=== PATIENT | male | born 1955 | race Caucasian/White ===

== ENCOUNTER 2024-10-30 11:39 | Emergency (ER) | payer MEDICARE, BC, SELFPAY ==
--- OUTSIDE RECORDS SUMMARY | 2024-10-30 11:41 | XMS_ITS | Continuity of Care Document ---
Author Organization [place] [facility] Address [address] [place] [address] Care Team Providers Care Platform Worker Name Role Phone DOMENICA SIMPSON Primary Care Provider [phone] Assessment No assessment recorded. Plan of Treatment Reminders Order Date Submit Date Provider Last Modified By Organization Details Last Modified Time Details Appointments LAB BLOOD DRAW 2024 11:10A M [facility] Not available Not available Not available ESTABLISH ED 10 2024 11:20A M Alex Flowers MD Not available Not available Not available Lab PSA, serum or plasma 2024 025 [facility], [address], [place], [address], 10/28/2024 14:29:59 PSA, total, serum or plasma - PLEASE CALL PT TO SCHEDULE Follow-up in 3 months with PSA 2024 025 [email or web address] [facility], [address] [facility], [place], [address], 10/28/2024 14:54:30 Referral None recorded. Procedures None recorded. Surgeries None recorded. Imaging None recorded. Medication Orders None recorded. Patient TargetsNo targets recorded. Patient InstructionsNo instructions recorded. Reason for Referral None Reported. Results Created Date Observation Date Name Description Value Unit Range Abnormal Flag Note LastModifiedBy Organization Detail LastModifiedTime 10/29/19 25 10/28/2024 PSA, serum or plasm a PSA 3.2ng/ mL 0-4.0 NG/mL Not Available [facility] [address], [place], [address], 10/20/2024 14:51:14 Result Notes None recorded. Problems Name Problem SNOMED Code Status Onset Date Resolution Date Notes Provider Name and Address Organization Details Recorded Time Hypertensi ve disorder 65705186 Active 2018 I10 : Essential (primary) hypertensi on Not Available [facility] 0 02:03:09 Problem Notes None recorded. Procedures Surgical History Date Name Laterality Status Provider Name and Address Organization Details Recorded Time 5 Blood Draw/SENIOR SAFETY MANAGEMENT CONSULTANT/PSA RESULTS completed Alex Flowers MD [address] [place] [address],[address], [address], [facility] 10/28/2024 14:04:49 4 Blood Draw/SENIOR SAFETY MANAGEMENT CONSULTANT/PSA RESULTS completed Alex Flowers MD [address] [place] [address],[address], [address], [facility] 05/05/2024 14:03:18 4 SENIOR SAFETY MANAGEMENT CONSULTANT/blood draw completed Alex Flowers MD [address] [place] [address],[address], [address], [facility] 10/29/2023 14:15:12 3 Blood Draw/SENIOR SAFETY MANAGEMENT CONSULTANT/PSA RESULTS completed Alex Flowers MD [address] [place] [address],[address], [address], [facility] 12/18/2022 11:13:47 2 colonoscopy completed Alex Flowers MD [address] [place] [address], [address], [facility] 05/05/2024 14:02:53 1 Fill and Pull/Voiding Trial/TOV completed Astrid Sandhu [facility] 04/13/2021 09:39:07 6 Colonoscopy completed Tamica Richards [facility] 05/11/2021 23:31:59 Imaging Results None recorded. Procedure Notes None recorded. Medical Equipment None Reported. Allergies Allergen ID Allergen Name Allergen Category Reaction Reaction Severity Criticality Documentation Date Start Date Code Code System Note Provider Name and Address Organization Details Recorded Time 893881 amlodipin e medicatio n other Not available Not available 10/28/20242015 77241 RxNorm Edema on 10mg, ok on 5mg. Not Available Not Available Not Available Medications Name Sig Start Date Stop Date Status Note LastModified by Organization Details LastModified Time losartan 50 mg tablet active Not Available Not Available No t Available etodolac 300 mg capsule TAKE FIRST CAPLET ONE HOUR PRIOR TO SURGICAL APPT. AFTER SURGERY TAKE 1 CAPLET EVERY 8 HOURS NEEDED FOR DISCOMFOR T 12/18 completed Not Available Not Available Not Available amlodipine 5 mg tablet TAKE 1 TABLET BY MOUTH EVERY DAY 05/05 completed Not Available Not Available Not Available sulfamethox azole 800 mg-trimetho prim 160 mg tablet 12/18 completed Not Available Not Available Not Available tramadol 50 mg tablet 12/18 completed Not Available Not Available Not Available potassium chloride ER 20 mEq tablet,exte nded release(par t/cryst) active Not Available Not Available Not Available cephalexin 500 mg capsule TAKE 1 CAPSULE BY MOUTH THREE TIMES DAILY 10/28 completed Not Available Not Available Not Available hydrochloro thiazide 25 mg tablet TAKE 1 TABLET BY MOUTH EVERY DAY active Not Available Not Available No t Available triamcinolo ne acetonide 0.1 % lotion 12/18 completed Not Available Not Available Not Available methylpredn isolone 4 mg tablets in a dose pack 12/18 completed Not Available Not Available Not Available sodium fluoride 1.1 % dental gel 12/18 completed Not Available Not Available Not Available potassium chloride ER 10 mEq tablet,exte nded release(par t/cryst) TAKE 1 TABLET BY MOUTH EVERY DAY WITH A MEAL 10/28 completed Not Available Not Available Not Available tadalafil 20 mg tablet Take 1 tablet every day by oral route. 2021 active Not Available Not Available Not Avai lable chlorhexidi ne gluconate 0.12 % mouthwash 12/18 completed Not Available Not Available Not Available aspirin 81 mg capsule Take 1 capsule every day by oral route. active Not Available Not Available No t Available Vitals Date Recorded Body height Body mass index (BMI) Body weight Provider Name and Address Organization Details Last Updated DateTime 10/28/2024 180.34 cm 32.1 kg/m2 419537.25 g Alex Flowers MD [address] [facility],[address], [place], [address] 10/28/2024 14:03:33 Social History Question Answer Notes LastModified by Organizat ion Details LastModified Time Tobacco Smoking Status Former Smoker Ishmael Fowler MD [address] [facility],[address], [place], [address], [facility] 03/15/2021 14:38:03 What Is Your Level Of Alcohol Consumption? Moderate Information not available 12/18/2022 How Many Times Per Week Do You Consume Alcohol? 5-7 Times Per Week Information not available 12/18/2022 What Is Your Level Of Caffeine Consumption? Moderate Information not available 12/18/2022 What Was The Date Of Your Most Recent Tobacco Screening? 10/28/2024 Information not available 10/28/2024 Do You Use Any Illicit Or Recreational Drugs? No Information not available 12/18/2022 Sex: Unknown Functional Status None recorded. Mental Status None recorded. Family History Nothing Reported. Medical History Condition Response High Blood Pressure Y Cancer Y Kidney Stones N Immunizations Vaccine Type Date Status Note Provider Nam e and Address Organization Details Recorded Time Pneumococcal conjugate PCV20, polysaccharide [id number] conjugate, adjuvant, PF 3 completed Not Available [facility] 10/28/2024 13:47:52 Influenza, adjuvanted, quadrivalent, PF 3 completed Not Available [facility] 10/28/2024 13:47:52 COVID-19, mRNA, LNP-S, PF, 50 mcg/0.5 mL 4 completed Not Available [facility] 10/28/2024 13:47:52 Influenza, adjuvanted, trivalent, PF 4 completed Not Available [facility] 10/28/2024 13:47:52 Influenza, split virus, quadrivalent, preservative 5 completed DINH JUAREZ-TRES [address] [facility],[address], [place], [address], [facility] 06/20/2023 10:19:29 Influenza, MDCK, quadrivalent, PF 0 completed [facility] [address] [place] [address],[address], [place], [address], [facility] 06/20/2023 10:19:30 Influenza, MDCK, quadrivalent, preservative 9 completed [facility] [address] [place] [address],[address], [place], [address], [facility] 06/20/2023 10:19:30 zoster recombinant 0 completed KRISTIE FERRARI [address], [place], [address], [facility] 06/20/2023 10:19:30 zoster recombinant 0 completed KRISTIE FERRARI [address], [place], [address], [facility] 06/20/2023 10:19:30 Influenza, high-dose, quadrivalent, PF 2 completed KRISTIE FERRARI [address], [place], [address], [facility] 06/20/2023 10:19:30 COVID-19, mRNA, LNP-S, PF, 100 mcg/0.5mL dose or 50 mcg/0.25mL dose 1 completed KRISTIE FERRARI [address], [place], [address], [facility] 06/20/2023 10:19:30 COVID-19, mRNA, LNP-S, PF, 100 mcg/0.5mL dose or 50 mcg/0.25mL dose 1 completed KRISTIE FERRARI [address], [place], [address], [facility] 06/20/2023 10:19:30 COVID-19, mRNA, LNP-S, PF, 30 mcg/0.3 mL dose 1 completed KRISTIE FERRARI [address], [place], [address], [facility] 06/20/2023 10:19:30 COVID-19, mRNA, LNP-S, PF, 30 mcg/0.3 mL dose, jolene-sucrose 2 completed KRISTIE GARAYBilly [facility], [address], [place], [address], [facility] 06/20/2023 10:19:30 Tdap 2 completed KRISTIE FERRARI, [address], [place], [address], [facility] 06/20/2023 10:19:30 Tdap 2 completed KRISTIE FERRARI, [address], [place], [address], [facility] 06/20/2023 10:19:30 zoster live 7 completed KRISTIE FERRARI [address], [place], [address], [facility] 06/20/2023 10:19:30 Influenza, split virus, trivalent, preservative 2 completed KRISTIE FERRARI, [address], [place], [address], [facility] 06/20/2023 10:19:30 Influenza, split virus, trivalent, preservative 3 completed KRISTIE FERRARI [address], [place], [address], [facility] 06/20/2023 10:19:30 Influenza, split virus, trivalent, preservative 1 completed KRISTIE FERRARI [address], [place], [address], [facility] 06/20/2023 10:19:30 Influenza, split virus, trivalent, preservative 0 completed KRISTIE FERRARI [address], [place], [address], [facility] 06/20/2023 10:19:30 Influenza, split virus, trivalent, PF 9 completed KRISTIE GARAYBilly [facility], [address], [place], [address], [facility] 06/20/2023 10:19:30 Td (adult), 2 Lf tetanus toxoid, preservative free, adsorbed 3 completed KRISTIE MARCUSBilly [facility]I, [address], [place], [address], [facility] 06/20/2023 10:19:30 typhoid, ViCPs 4 completed KRISTIE MARCUSBilly [facility], [address],[place] [address], [place], [address], [facility] 06/20/2023 10:19:30 Influenza, split virus, quadrivalent, PF 4 completed KRISTIESA MARCUS [facility], [address], [place], [address], [facility] 06/20/2023 10:19:30 Influenza, split virus, quadrivalent, PF 1 completed KRISTIE FERRARI, [address],[place] [address], [place], [address], [facility] 06/20/2023 10:19:30 Influenza, split virus, quadrivalent, PF 9 completed KRISTIESA MARCUS [facility], [address],[facility] [address], [place], [address], [facility] 06/20/2023 10:19:30 Influenza, split virus, quadrivalent, PF 7 completed KRISTIE FERRARI, [address],[place] [address], [place], [address], [facility] 06/20/2023 10:19:30 Hep A-Hep B 2 completed KRISTIE FERRARI, [address],[facility] [address], [place], [address], [facility] 06/20/2023 10:19:30 Hep A-Hep B 2 completed [facility] [address] [facility] [address], [place], [address], [facility] 06/20/2023 10:19:30 Hep A-Hep B 2 completed [facility] [address] [place] [address],[facility] [address], [place], [address], [facility] 06/20/2023 10:19:30 Past Encounters Encounter ID Performer Location Encounter Start Date Encounter Closed Date Diagnosis/Indication Diagnosis SNOMED-CT Code Diagnosis ICD10 Code Diagnosis Note [id number] Alex Flowers MD [facility] [address] [place] [address] 10/28/2024 13:45:15 10/28/2024 19:08:47 Carcinoma of prostate [id number] C61 1. Prostate cancer (HC)- T1c - Hegins 3+3 = 6 (left lat apex) - dx 06/18/18- s/p Cryotherap y - (04/07/21)- PSA (3.2) - increased - recent rise may be from irritation - Follow-up on 3 months with PSA(recomm end Prostate MRI and possible bx if PSA increases) Erectile dysfunction 860 624478 F52.21 H/O Erectile dysfunctio n- predates Cryoablati on / Cryoablati on made it worse- observe Health Concerns Section Related Observation LastModified by Organization Detai ls LastModified Time None Recorded Concern Status LastModified by Organization Details LastModified Time None Recorded Payers Encounter Date Sequence Insurance Name Policy Number Policy Taveras Covered Member ID Taveras Member ID Guarantor Name 10/28/2024 1 [place] MEDICARE COST [id number] [employer] [id number] [employer] Notes Date Note Type Note Provider Name and Address Organization Details Recorded Time 5 text/html 69yo male with prostate cancer (T1c - Hegins 3+3 = 6 - dx 06/18/18) - s/p Cryotherapy (04/07/21). He was noted to have an elevated PSA (4.51) in February 2018 - F/U PSA was 4.74. He underwent a TRUS bx of the prostate 06/18/18) - + prostate cancer (T1c - Hegins 3+3 = 6). No family H/O prostate cancer. He was started on Flomax 0.4 mg daily - did not take it. He tried Cialis (caused diarrhea).TRUS bx (06/18/18) - 42.4 gm- Left lateral apex - Prostate cancer - Juanjose 3+3 = 6 (60%) - no perineural invasion- Left Lateral base - CINDY- Left base - HG PIN- unable to perform Decipher test on prostate tissue.- s/p Cryotherapy (04/07/21) - Dr. Fowler 10/29/23 - He presents for follow-up on Prostate cancer. He voids every 1-3 hours during the day and 2x/night. 05/05/24-He presents for follow-up on Prostate cancer. He voids every 1-3 hours during the day and 2x/night. 10/28/24 - He presents for follow-up on Prostate cancer. He voids every 1-3 hours during the day and 2x/night.- PSA - 3.2 PSA - 1.02 (03/13/07) - 4.40 (10/17/19) - 3.2 (10/28/24)- 1.40 (10/30/08) - 5.67 (04/20/20)- 1.74 (08/12/10) - 9.39 (08/09/20)- 2.33 (08/12/14) - 9.20 (11/15/20)- 3.93 (02/02/17) - 10.01 (02/15/21)- 4.51 (02/28/18) - 2.43 (07/05/21)- 4.74 (05/20/18) - 1.56 (11/11/21)- 5.79 (10/11/18) - 1.57 (02/14/22)- 5.26 (12/20/18) - 1.2 (12/18/22)- 5.47 (03/26/19) - 3.2 (06/18/23)- 6.07 (06/26/19) - 1.8 (10/29/23)- 5.31 (07/21/19) - 0.80 (05/05/24)Prostate MRI (10/23/18) - 60 gm - no nodule- no pelvic lymphadenopathy or extra-prostatic extensionProstate MRI (09/02/20) - 51.9 gm - no suspicious lesions - no pelvic lymphadenopathyBone scan (03/01/21) - no evidence of metastatic disease Alex Flowers MD [address] [place] [address],[address], [place], [address], [facility] [place] [facility] 10/28/2024 19:08:44
--- OUTSIDE RECORDS SUMMARY | 2024-10-30 11:41 | XMS_ITS | Clinical Summary ---
Author Organization [facility] Address [address], [place] [address] Care Team Providers Care Senior Accounting Associate Name Role Phone Denzel Camargo MD Primary Care Provider Source Comments You are receiving this document as you are listed as the primary care provider,follow-up provider, or the patient has been referred to you for consultation.This is in compliance with the Medicare and[employer] EHR Incentive Program,which states Providers who transition their patient to another setting of careor provider of care or refers their patient to another provider of care shouldprovide summary care record for each transition of care or referral. [facility] Social History Tobacco Use Types Packs/Day Years Used Date Smoking Tobacco: Never Assessed Sex and Gender Information Value Date Recorded Sex Assigned at Not on file Legal Sex Male 4:44 AM CDT Gender Identity Not on file Sexual Orientation Not on file Plan of Treatment Upcoming Encounters Date Type Department Care Team (Late st Contact Info) Description 12/11/2024 11:30 AM CDT Appointment Audiology at [facility] [address] [address] Gregoria Kaur AU.D. [address] [place] [address] Health Maintenance Due Date Last Done Comments Colon Cancer Screening Plan Due 1955 Hep C Screening (Preventive Services) 1955 PSA Screening Discussion 1955 Cholesterol 1991 Medicare Annual Wellness Visit 03/15/2023 03/15/2022 COVID-19 Vaccine ( season) 2024 05/29/2024, 07/11/2021, 12/01/2020, Additional history exists RSV (1 - 1-dose 75+ series) 2031 DTaP/Tdap/Td (3 - Tdap) 05/06/2032 05/06/20, 09/27/2011, 03/26/2003 HepA Aged Out 04/05/2012, 10/12, 09/27/2011 No longer eligible based on patient's age to complete this topic Zoster/Shingles Completed 07/03/2020, 02/12, 05/17/2017 Pneumococcal 50+ Yrs Completed 03/21/2023 Influenza Completed 05/29/2024, 05/14, 05/06/2022, Additional history exists HepB Aged Out No longer eligi ble based on patient's age to complete this topic Hib Aged Out No longer eligi ble based on patient's age to complete this topic IPV (Polio) Aged Out No longer eligi ble based on patient's age to complete this topic MCV4 Aged Out No longer eligi ble based on patient's age to complete this topic Meningococcal B Aged Out No longer el igible based on patient's age to complete this topic Insurance [facility] [employer] MEDICARE MANAGED CARE [facility] Care Teams Senior Accounting Associate Relationship Specialty Start Date End Date Denzel Camargo MD [address] [place], [place] [phone] PCP - General Family Practice 03/26/24
--- OUTSIDE RECORDS SUMMARY | 2024-10-30 11:41 | XMS_ITS | Data Portability ---
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 Plan of Treatment Reminders Order Date Submit Date Provider Last Modified By Organization Details Last Modified Time Details Appointments LAB BLOOD DRAW 2024 11:10A M [facility] Not available Not available Not available ESTABL ISHED 10 2024 11:20A M Alex Flowers MD Not available Not available Not available Lab PSA, serum or plasma 2024 025 [facility], [address], [place], [address], 10/28/2024 14:29:59 PSA, total, serum or plasma - PLEASE CALL PT TO LUIS KUMAR Follow -up in 3 months with PSA 2024 025 [email or web address] [facility], [address] , [place], [address], 10/28/2024 14:54:30 PSA, serum or plasma 2023 024 [email or web address] ro [facility], [address], [place], [address], 05/05/2024 14:16:43 PSA, total, serum or plasma 2023 024 [email or web address] [facility], [address], [place], [address], 05/06/2024 08:04:56 PSA, serum or plasma 2023 024 [email or web address] [facility], [address], [place], [address], 10/29/2023 14:31:00 PSA, total, serum or plasma 2023 024 [email or web address] [facility], [address], [place], [address], 01/03/2024 12:46:04 PSA, total, serum or plasma 2023 024 [email or web address] [facility], [address] [place] [address], [place], [address], 01/03/2024 12:46:23 PSA, serum or plasma 2022 023 [email or web address] [facility], [address], [place], [address], 06/20/2023 10:39:45 PSA, total, serum or plasma 2022 023 [email or web address] [facility], [address] [place], [address], 06/20/2023 11:46:46 PSA, serum or plasma 2022 023 [facility], [address], [place], [address], 12/18/2022 11:14:06 PSA, total, serum or plasma - Needed Novemb er 2022 023 [email or web address] [facility], [address] [place], [address], 12/25/2022 08:41:05 Referral None record ed. Procedures None record ed. Surgeries None record ed. Imaging None record ed. Medication Orders None record ed. Patient TargetsNo targets recorded. Patient InstructionsNo instructions recorded. Reason for Referral None Reported. Results Created Date Observation Date Name Description Value Unit Range Abnormal Flag Note LastModifiedBy Organization Detail LastModifiedTime 12/19/1912/18/2022 PSA, serum or plasm a PSA 1.2ng/ mL 0-4.0 Not Available [facility] [address], [place], [address], 12/18/2022 11:13:51 06/20/2006/20/2023 PSA, serum or plasm a PSA 3.2ng/ ml 0-4.0 Not Available [facility] [address], [place], [address], 06/20/2023 10:33:27 10/29/19 24 10/29/2023 PSA, serum or plasm a PSA 1.8ng/ mL 0-4.0 Not Available [facility] [address], [place], [address], 10/29/2023 14:15:22 05/05/20 24 05/05/2024 PSA, serum or plasm a PSA 0.80ng /ml 0-4.0 NG/mL Not Available [facility] [address], [place], [address], 04/24/2024 16:44:58 10/29/19 25 10/28/2024 PSA, serum or plasm a PSA 3.2ng/ mL 0-4.0 NG/mL Not Available [facility] [address], [place], [address], 10/20/2024 14:51:14 Result Notes None recorded. Problems Name Problem SNOMED Code Status Onset Date Resolution Date Notes Provider Name and Address Organization Details Recorded Time Hypertensi ve disorder 58567554 Active 2018 I10 : Essential (primary) hypertensi on Not Available [facility] 0 02:03:09 Problem Notes None recorded. Procedures Surgical History Date Name Laterality Status Provider Name and Address Organization Details Recorded Time 5 Blood Draw/DIRECTOR NURSES' REGISTRY/PSA RESULTS completed Alex Flowers MD [address] [place] [address],[address], [address], [facility] 10/28/2024 14:04:49 4 Blood Draw/DIRECTOR NURSES' REGISTRY/PSA RESULTS completed Alex Flowers MD [address] [place] [address],[address], [address], [facility] 05/05/2024 14:03:18 4 DIRECTOR NURSES' REGISTRY/blood draw completed Alex Flowers MD [address] [place] [address],[address], [address], [facility] 10/29/2023 14:15:12 3 Blood Draw/DIRECTOR NURSES' REGISTRY/PSA RESULTS completed Alex Flowers MD [address] [place] [address],[address], [address], [facility] 12/18/2022 11:13:47 2 colonoscopy completed Alex Flowers MD [address] [place] [address],[facility] [address], [address], [facility] 05/05/2024 14:02:53 1 Fill and Pull/Voiding Trial/TOV completed Astrid Sandhu [facility] 04/13/2021 09:39:07 6 Colonoscopy completed Tamica Richards [facility] 05/11/2021 23:31:59 Imaging Results None recorded. Procedure Notes None recorded. Medical Equipment None Reported. Allergies Allergen ID Allergen Name Allergen Category Reaction Reaction Severity Criticality Documentation Date Start Date Code Code System Note Provider Name and Address Organization Details Recorded Time 534798 amlodipin e medicatio n other Not available Not available 10/28/20242015 17800 RxNorm Edema on 10mg, ok on 5mg. [...] EVERY 8 HOURS NEEDED FOR DISCOMFOR T 05/08 /2023 completed Not Available Not Available Not Available [...] and Address Organization Details Last Updated DateTime 12/18/2022 180.34 cm 33.5 kg/m2 839674.17 g Alex Flowers MD [address], [address], [facility] 12/18/2022 11:11:43 Date Recorded Body height Provider Name an d Address Organization Details Last Updated DateTime 06/20/2023 180.34 cm DINH JUAREZ-TRES [address], [address], [facility] 06/20/2023 10:19:22 Date Recorded Body height Body mass index (BMI) Body weight Provider Name and Address Organization Details Last Updated DateTime 10/29/2023 180.34 cm 32.1 kg/m2 458558.25 reagan Flowers MD [address] [place] [address],[place] [address], [facility] 10/29/2023 14:14:09 Date Recorded Body height Body mass index (BMI) Body weight Provider Name and Address Organization Details Last Updated DateTime 05/05/2024 180.34 cm 32.1 kg/m2 535607.25 reagan Flowers MD [address] [place] [address] [facility] 05/05/2024 14:00:41 Date Recorded Body height Body mass index (BMI) Body weight Provider Name and Address Organization Details Last Updated DateTime 10/28/2024 180.34 cm 32.1 kg/m2 514082.25 reagan Flowers MD [address] [place] [address] [facility] 10/28/2024 14:03:33 Social History Question Answer Notes LastModified by Organizat ion Details LastModified Time Tobacco Smoking Status Former Smoker Ishmael Fowler MD [address] [place] [address], [address], [facility] 03/15/2021 14:38:03 What Is Your Level Of [...] Details Recorded Time Pneumococcal conjugate PCV20, polysaccharide DNW213 conjugate, adjuvant, PF 3 completed Not Available [facility] 10/28/2024 13:47:52 Influenza, adjuvanted, quadrivalent, PF 3 completed Not Available [facility] 10/28/2024 13:47:52 COVID-19, mRNA, LNP-S, PF, 50 mcg/0.5 mL 4 completed Not Available [facility] 10/28/2024 13:47:52 Influenza, adjuvanted, trivalent, PF 4 completed Not Available [facility] 10/28/2024 13:47:52 Influenza, split virus, quadrivalent, preservative 5 completed KRISTIE FERRARI [address], [address], [facility] 06/20/2023 10:19:29 Influenza, MDCK, quadrivalent, PF 0 completed KRISTIE FERRARI [address], [address], [facility] 06/20/2023 10:19:30 Influenza, MDCK, quadrivalent, preservative 9 completed KRISTIE FERRARI [address] [place] [address], [address], [facility] 06/20/2023 10:19:30 zoster recombinant 0 completed KRISTIE FERRARI [address], [address], [facility] 06/20/2023 10:19:30 zoster recombinant 0 completed KRISTIE FERRARI [address], [address], [facility] 06/20/2023 10:19:30 Influenza, high-dose, quadrivalent, PF 2 completed KRISTIE FERRARI [address], [address], [facility] 06/20/2023 10:19:30 COVID-19, mRNA, LNP-S, PF, 100 mcg/0.5mL dose or 50 mcg/0.25mL dose 1 completed KRISTIE FERRARI [address], [place], [address], [facility] 06/20/2023 10:19:30 COVID-19, mRNA, LNP-S, PF, 100 mcg/0.5mL dose or 50 mcg/0.25mL dose 1 completed KRISTIE GARAYY VEGA [address], [place], [address], [facility] 06/20/2023 10:19:30 COVID-19, mRNA, LNP-S, PF, 30 mcg/0.3 mL dose 1 completed KRISTIE GARAYBilly FERRARI [address], [place], [address], [facility] 06/20/2023 10:19:30 COVID-19, mRNA, LNP-S, PF, 30 mcg/0.3 mL dose, jolene-sucrose 2 completed KRISTIE MARCUSBilly FERRARI [address], [place], [address], [facility] 06/20/2023 10:19:30 Tdap 2 completed KRISTIE FERRARI [address], [place], [address], [facility] 06/20/2023 10:19:30 Tdap 2 completed KRISTIE MARCUSBilly FERRARI [address], [place], [address], [facility] 06/20/2023 10:19:30 zoster live 7 completed KRISTIE FERRARI [address], [place], [address], [facility] 06/20/2023 10:19:30 Influenza, split virus, trivalent, preservative 2 completed KRISTIE FERRARI, [facility] [address] [place] [address],[address], [place], [address], [facility] 06/20/2023 10:19:30 Influenza, split virus, trivalent, preservative 3 completed KRISTIE FERRARI, [address], [place], [address], [facility] 06/20/2023 10:19:30 Influenza, split virus, trivalent, preservative 1 completed KRISTIE FERRARI, [address], [place], [address], [facility] 06/20/2023 10:19:30 Influenza, split virus, trivalent, preservative 0 completed KRISTIE FERRARI, [address], [place], [address], [facility] 06/20/2023 10:19:30 Influenza, split virus, trivalent, PF 9 completed KRISTIESA MARCUS FERRARI, [address], [place], [address], [facility] 06/20/2023 10:19:30 Td (adult), 2 Lf tetanus toxoid, preservative free, adsorbed 3 completed KRISTIE FERRARI, [address], [place], [address], [facility] 06/20/2023 10:19:30 typhoid, ViCPs 4 completed KRISTIE FERRARI, [address], [place], [address], [facility] 06/20/2023 10:19:30 Influenza, split virus, quadrivalent, PF 4 completed KRISTIE FERRARI, [address], [place], [address], [facility] 06/20/2023 10:19:30 Influenza, split virus, quadrivalent, PF 1 completed KRISTIE FERRARI, [facility] [address] [place] [address],[address] [place] [address], [address], [facility] 06/20/2023 10:19:30 Influenza, split virus, quadrivalent, PF 9 completed KRISTIE FERRARI, [address] [place] [address], [address], [facility] 06/20/2023 10:19:30 Influenza, split virus, quadrivalent, PF 7 completed KRISTIE FERRARI, [address] [place] [address], [address], [facility] 06/20/2023 10:19:30 Hep A-Hep B 2 completed KRISTIE FERRARI, [address], [address], [facility] 06/20/2023 10:19:30 Hep A-Hep B 2 completed KRISTIE FERRARI, [facility] [address] [place] [address],[address] [place] [address], [address], [facility] 06/20/2023 10:19:30 Hep A-Hep B 2 completed KRISTIE FERRARI, [facility] [address] [place] [address],[address], [address], [facility] 06/20/2023 10:19:30 Past Encounters Encounter ID Performer Location Encounter Start Date Encounter Closed Date Diagnosis/Indication Diagnosis SNOMED-CT Code Diagnosis ICD10 Code Diagnosis Note [id number] MD RAISA [facility] [address] [place] [id number] 03/15/2021 13:50:34 03/17/2021 16:31:34 Malignant tumor of prostate [id number] C61 [id number] Astrid [facility]LINE_[facility] [address] [place] [id number] 04/13/2021 09:23:23 04/20/2021 10:54:57 Carcinoma of prostate 149000836 C61 [id number] Alex Flowers MD [address] [place] [place] [address] 07/05/2022 11:38:21 07/10/2022 16:05:42 Carcinoma of prostate [id number] C61 1. Prostate cancer (HC)- T1c - Juanjose 3+3 = 6 (left lat apex) - dx 06/18/18- s/p Cryotherap y - (04/07/21)- PSA decrease (1.57)- check PSA in August 2022 ([facility])- Follow-up on 8 months with PSA ([facility]) Erectile dysfunction 860 585672 F52.21 2. Erectile dysfunctio n- predates Cyroablati on / Cryoablati on made it worse- discussed options - oral meds, MUSE, penile injection, PAULA, or penile prosthesis - try Cialsis 10-20 mg prn [id number] Alex Flowers MD [address] [place] [address] 12/18/2022 10:59:01 12/22/2022 09:39:46 Carcinoma of prostate 937100022 C61 1. Prostate cancer (HC)- T1c - Juanjose 3+3 = 6 (left lat apex) - dx 06/18/18- s/p Cryotherap y - (04/07/21)- PSA (1.2) - decrease- Follow-up on 6 months with PSA Erectile dysfunction 860 786305 F52.21 2. Erectile dysfunctio n- predates Cyroablati on / Cryoablati on made it worse- observe [id number] KRISTIE FERRARI, RECRUITMENT CONSULTANT-[facility] [address] [place] [address] 06/20/2023 10:03:39 07/02/2023 14:41:40 Carcinoma of prostate 142104585 C61 1. Prostate cancer (HC)- T1c - [place] 3+3 = 6 (left lat apex) - dx 06/18/18- s/p Cryotherap y - (04/07/21)- PSA (3.2) - increased - may be from irritation vs recurrence - Follow-up on 3 months with PSA Erectile dysfunction 860 605025 F52.21 2. Erectile dysfunctio n- predates Cryoablati on / Cryoablati on made it worse- observe [id number] Alex Flowers MD [address] [place] [place] [address] 10/29/2023 14:01:50 10/30/2023 09:34:53 Carcinoma of prostate [id number] C61 1. Prostate cancer (HC)- T1c - [place] 3+3 = 6 (left lat apex) - dx 06/18/18- s/p Cryotherap y - (04/07/21)- PSA (1.8) - decreased - recent rise may be from irritation - Follow-up on 6 months with PSA Erectile dysfunction 860 931735 F52.21 Foll2. Erectile dysfunctio n- predates Cryoablati on / Cryoablati on made it worse- observe [id number] Alex Flowers MD [address] [place] [address] 05/05/2024 13:22:52 05/06/2024 11:03:05 Carcinoma of prostate 605484248 C61 1. Prostate cancer (HC)- T1c - Juan[place] 3+3 = 6 (left lat apex) - dx 06/18/18- s/p Cryotherap y - (04/07/21)- PSA (1.8) - decreased - recent rise may be from irritation - Follow-up on 6 months with PSA Erectile dysfunction 860 467225 F52.21 Foll2. Erectile dysfunctio n- predates Cryoablati on / Cryoablati on made it worse- observe [id number] Alex Flowers MD [address] [place] [address] 10/28/2024 13:45:15 10/28/2024 19:08:47 Carcinoma of prostate 962429782 C61 1. Prostate cancer (HC)- T1c - [place] 3+3 = 6 (left lat apex) - dx 06/18/18- s/p Cryotherap y - (04/07/21)- PSA (3.2) - increased - recent rise may be from irritation - Follow-up on 3 months with PSA(recomm end Prostate MRI and possible bx if PSA increases) Erectile dysfunction 860 156873 F52.21 H/O Erectile dysfunctio n- predates Cryoablati on / Cryoablati on made it worse- observe Health Concerns Section Related Observation LastModified by Organization Detai ls LastModified Time None Recorded Concern Status LastModified by Organization Details LastModified Time None Recorded Advance Directives Directive None Recorded Payers Encounter Date Sequence Insurance Name Policy Number Policy Taveras Covered Member ID Taveras Member ID Guarantor Name 12/18/2022 1 [place] [id number] Tripkasey Cantorenigs [id number] Trip Gunnar Koenigs 06/20/2023 1 [place] [id number] Trip J Koenigs [id number] Trip J Koenigs 10/29/2023 1 [place] [id number] Trip Gunnar Koenigs [id number] Trip Gunnar Koenigs 05/05/2024 1 [place] [id number] Tripkasey Cantorenigs [id number] Trip J Koenigs 10/28/2024 1 [place] [id number] Tripkasey Cantorenigs [id number] Trip J Koenigs Notes Date Note Type Note Provider Name and Address Organization Details Recorded Time 3 text/html 67 yo male with prostate cancer (T1c - Juanjoes 3+3 = 6 - dx ) - s/p Cryotherapy (04/07/21). He was noted to have an elevated PSA (4.51) in February 2018 - F/U PSA was 4.74. He underwent a TRUS bx of the prostate 06/18/18) - + prostate cancer (T1c - Juanjose 3+3 = 6). No family H/O prostate [...] prostate tissue.- s/p Cryotherapy (04/07/21) - Dr. Chappelle109/10/20 - He presents for follow-up on prostate cancer. He reports no change in urination. He voids every 3-4 hours during the day and 1-3x/night. He denies urgency and dysuria. 07/05/22 - He presents for follow-up on prostate cancer. He notes a slow stream at night - no dysuria. He voids every 1-3 hours during the day and 1-3x/night. + difficulty obtaining and maintaining erections. 02/14/22 PSA was 1.57 12/18/22 - He presents for follow-up on Prostate cancer. He voids every 1-3 hours during the day and 2-3x/night. He reports hesitancy and slow stream at night. No erections- PSA -1.2 PSA - 1.02 (03/13/07) - 4.40 (10/17/19)- 1.40 (10/30/08) - 5.67 (04/20/20)- 1.74 (08/12/10) - 9.39 (08/09/20)- 2.33 (08/12/14) - 9.20 (11/15/20)- 3.93 (02/02/17) - 10.01 (02/15/21)- 4.51 (02/28/18) - 2.43 (07/05/21)- 4.74 (05/20/18) - 1.56 (11/11/21)- 5.79 (10/11/18) - 1.57 (02/14/22)- 5.26 (12/20/18) - 1.2 (12/18/22)- 5.47 (03/26/19)- 6.07 (06/26/19)- 5.31 (07/21/19)Prostate MRI (10/23/18) - 60 gm - no nodule- no pelvic lymphadenopathy or extra-prostatic extensionProstate MRI (09/02/20) - 51.9 gm - no suspicious lesions - no pelvic lymphadenopathyBone scan (03/01/21) - no evidence of metastatic disease Alex Flowers MD [address] [facility],[address], [place], [address], [place] [facility] 12/18/2022 11:28:56 3 text/html 67 yo male with prostate cancer (T1c - Juanjose 3+3 = 6 - dx ) - s/p Cryotherapy (04/07/21). He was noted to have an elevated PSA (4.51) in February 2018 - F/U PSA was 4.74. He underwent a TRUS bx of the prostate 06/18/18) - + prostate cancer (T1c - Juanjose 3+3 = 6). No family H/O prostate cancer. He was started on Flomax 0.4 mg daily - did not take it. He tried Cialis (caused diarrhea).TRUS bx (06/18/18) - 42.4 gm- Left lateral apex - Prostate cancer - [place] 3+3 = 6 (60%) - no perineural invasion- Left Lateral base - CINDY- Left base - HG PIN- unable to perform Decipher test on prostate tissue.- s/p Cryotherapy (04/07/21) - Dr. Chappelle109/10/20 - He presents for follow-up on prostate cancer. He reports no change in urination. He voids every 3-4 hours during the day and 1-3x/night. He denies urgency and dysuria. 07/05/22 - He presents for follow-up on prostate cancer. He notes a slow stream at night - no dysuria. He voids every 1-3 hours during the day and 1-3x/night. + difficulty obtaining and maintaining erections. 02/14/22 PSA was 1.57 12/18/22 - He presents for follow-up on Prostate cancer. He voids every 1-3 hours during the day and 2-3x/night. He reports hesitancy and slow stream at night. No erections 06/20/23 - He presents for follow-up on Prostate cancer. He voids every 1-3 hours during the day and 2-3x/night.- PSA -3.2 PSA - 1.02 (03/13/07) - 4.40 (10/17/19)- 1.40 (10/30/08) - 5.67 (04/20/20)- 1.74 (08/12/10) - 9.39 (08/09/20)- 2.33 (08/12/14) - 9.20 (11/15/20)- 3.93 (02/02/17) - 10.01 (02/15/21)- 4.51 (02/28/18) - 2.43 (07/05/21)- 4.74 (05/20/18) - 1.56 (11/11/21)- 5.79 (10/11/18) - 1.57 (02/14/22)- 5.26 (12/20/18) - 1.2 (12/18/22)- 5.47 (03/26/19) - 3.2 (06/18/23)- 6.07 (06/26/19)- 5.31 (07/21/19)Prostate MRI (10/23/18) - 60 gm - no nodule- no pelvic lymphadenopathy or extra-prostatic extensionProstate MRI (09/02/20) - 51.9 gm - no suspicious lesions - no pelvic lymphadenopathyBone scan (03/01/21) - no evidence of metastatic disease KRISTIE FERRARI, RECRUITMENT CONSULTANT- [address] [place] [address],[facility] [address], [place], [address], [place] [facility] 06/20/2023 10:41:07 4 text/html 68 yo male with prostate cancer (T1c - [place] 3+3 = 6 - dx /) - s/p Cryotherapy (04/07/21). He was noted to have an elevated PSA (4.51) in February 2018 - F/U PSA was 4.74. He underwent a TRUS bx of the prostate 06/18/18) - + prostate cancer (T1c - Juanjose 3+3 = 6). No family H/O prostate [...] tissue.- s/p Cryotherapy (04/07/21) - Dr. Fowler 12/18/22 - He presents for follow-up on Prostate cancer. He voids every 1-3 hours during the day and 2-3x/night. He reports hesitancy and slow stream at night. No erections 06/20/23 - He presents for follow-up on Prostate cancer. He voids every 1-3 hours during the day and 2-3x/night. 10/29/23 - He presents for follow-up on Prostate cancer. He voids every 1-3 hours during the day and 2x/night.- PSA - 1.8 PSA - 1.02 (03/13/07) - 4.40 (10/17/19)- 1.40 (10/30/08) - 5.67 (04/20/20)- 1.74 (08/12/10) - 9.39 (08/09/20)- 2.33 (08/12/14) - 9.20 (11/15/20)- 3.93 (02/02/17) - 10.01 (02/15/21)- 4.51 (02/28/18) - 2.43 (07/05/21)- 4.74 (05/20/18) - 1.56 (11/11/21)- 5.79 (10/11/18) - 1.57 (02/14/22)- 5.26 (12/20/18) - 1.2 (12/18/22)- 5.47 (03/26/19) - 3.2 (06/18/23)- 6.07 (06/26/19) - 1.8 (10/29/23)- 5.31 (07/21/19)Prostate MRI (10/23/18) - 60 gm - no nodule- no pelvic lymphadenopathy or extra-prostatic extensionProstate MRI (09/02/20) - 51.9 gm - no suspicious lesions - no pelvic lymphadenopathyBone scan (03/01/21) - no evidence of metastatic disease Alex Flowers MD [address] [facility],[address], [place], [address], [place] [facility] 10/29/2023 14:45:18 4 text/html 68 yo male with prostate cancer (T1c - [place] 3+3 = 6 - dx ) - s/p Cryotherapy (04/07/21). He was noted to have an elevated PSA (4.51) in February 2018 - F/U PSA was 4.74. He underwent a TRUS bx of the prostate 06/18/18) - + prostate cancer (T1c - [place] 3+3 = 6). No family H/O prostate [...] tissue.- s/p Cryotherapy (04/07/21) - Dr. Fowler 06/20/23 - He presents for follow-up on Prostate cancer. He voids every 1-3 hours during the day and 2-3x/night. 10/29/23 - He presents for follow-up on Prostate cancer. He voids every 1-3 hours during the day and 2x/night. 05/05/24-He presents for follow-up on Prostate cancer. He voids every 1-3 hours during the day and 2x/night.- PSA - 0.80ng/ml PSA - 1.02 (03/13/07) - 4.40 (10/17/19)- 1.40 (10/30/08) - 5.67 (04/20/20)- 1.74 (08/12/10) [...] evidence of metastatic disease Alex Flowers MD [address] [facility],[address], [place], [address], [place] [facility] 05/05/2024 14:27:12 5 text/html 69yo male with prostate cancer (T1c - [place] 3+3 = 6 - dx 06/18/18) - s/p Cryotherapy (04/07/21). He was noted to have an elevated PSA (4.51) in February 2018 - F/U PSA was 4.74. He underwent a TRUS bx of the prostate 06/18/18) - + prostate cancer (T1c - [place] 3+3 = 6). No family H/O prostate [...] evidence of metastatic disease Alex Flowers MD [address] [facility] Center,[address], [place], [address], [place] [facility] 10/28/2024 19:08:44
[2024-10-30 11:59] VITALS: BP 154/101; RESP 20; TEMP 36.1; O2SAT 95; BMI 33.0
--- NOTE | 2024-10-30 12:09 | ED.GENADULT ---
HPI - General Adult General Date Seen: 10/30/24 Chief complaint: Epistaxis/Nosebleed Stated complaint: 2Hr bloody nose Time Seen by Provider: 10/30/24 12:01 History of Present Illness HPI narrative: 69-year-old male is referred to the ER today from Urgent Care for evaluation of nosebleed. Nosebleed started this morning just before 9:00 a.m. while he was sleeping. He has no known nasal trauma or injury. Her he takes baby aspirin but no other anticoagulants He started having nose bleeding this morning just before 9:00 a.m. and has been persistent since then. He has been trying to lean forward and hold pressure on the front of his nose but it has not been stopping. He has had dark red venous oozing from his left nostril. Also some clots in the left side that sometimes go down the back of his throat. No right-sided bleeding. He is not lightheaded or dizzy. He went to the urgent care and was referred here to the ER. Vital signs are stable at urgent care. He also tried some pro coagulant powder and left nose that did was ineffective. Related Data Home Medications ?Medication ?Instructions ?Recorded ?Confirmed aspirin [Adult Low Dose Aspirin] PO 10/30/24 10/30/24 hydrochlorothiazide 25 mg tablet 25 mg PO DAILY 10/30/24 10/30/24 losartan 50 mg tablet 50 mg PO DAILY 10/30/24 10/30/24 potassium chloride 20 mEq 20 meq PO BID 10/30/24 10/30/24 tablet,extended release(part/cryst) Allergies Allergy/AdvReac Type Severity Reaction Status Date / Time No Known Drug Allergies Allergy Verified 10/30/24 11:17 [facility] PFS Social History Smoking Status: Former smoker Do you use any of these nicotine containing products: None Second hand tobacco smoke exposure: No How often do you have a drink containing alcohol: 4 or more times a week How many standard drinks containing alcohol do you have on a typical day: 3 or 4 How often do you have six or more drinks on one occasion: Weekly AUDIT-C Alcohol total score: 8 Non-prescribed substance use: denies use service: Yes Exam Narrative: Exam Narrative: Constitutional: Appears well-developed and well-nourished. Alert. Conversant. Non toxic. HENT: Head: Atraumatic. Nose: External Nose normal. Right nares normal. He does have active dark red oozing blood from his left naris. No posterior or pharyngeal bleeding. After direct pressure and application of Afrin bleeding from left nares is slowed. I had the patient blow his nose and expressive fairly large clot from the left nostril. With this we were able to identify a likely site of bleeding on the very lower edge of his left nasal septum about a cm or cm half in from the nasal opening. We instilled 2 mL of 1% lidocaine with epi through mucosal atomizer and then applied a cotton ball soaked in 2% viscous lidocaine. After this a be re-evaluated. We were able to identify the likely bleeding site. This was cauterized using silver nitrate. No further bleeding was noted. Patient was monitor here in the ER and then passed road test without difficulty. Mouth/Throat: Oral mucosa is clear and moist. no trismus. Pharynx normal. Tonsils symmetric. No tonsillar enlargement, erythema, or exudate. Eyes: Conjunctivae normal. EOM normal. Pupils equal, round, and reactive to light. No scleral icterus. Neck: Normal range of motion. Neck supple. No tracheal deviation present. Cardiovascular: Normal rate, regular rhythm. No gallop. No friction rub. No murmur heard. Symmetric radial artery pulses Pulmonary/Chest: Effort normal. No stridor. No respiratory distress. No wheezes. No rales. No rhonchi . No tenderness. Musculoskeletal: RUE: Normal range of motion. No tenderness. No deformity LUE: Normal range of motion. No tenderness. No deformity RLE: Normal range of motion. No edema. No tenderness. No deformity LLE: Normal range of motion. No edema. No tenderness. No deformity Lymph: No cervical adenopathy. Neurological: Alert and oriented to person, place, and time. Normal strength. CN II-VII intact. No sensory deficit. GCS eye subscore is 4. GCS verbal subscore is 5. GCS motor subscore is 6. Normal coordination . Mild tremor is his baseline. Skin: Skin is warm and dry. No rash noted. No pallor. Normal capillary refill. Psychiatric: Normal mood. Normal affect. Polite. Const: Vital Signs, click to edit/add: Vital Signs - 24 hr 10/30/24 11:59 10/30/24 13:58 Temperature 97 F L Pulse Rate [Pulse Oximeter] 82 Respiratory Rate 20 16 Blood Pressure [Ri ght Upper Arm] 154/101 H 146/81 H Pulse Oximetry 95 96 Oxygen Delivery Me thod Room Air Room Air Course Vital Signs Vital signs: Initial Vital Signs Temperature 97 F L 10/30/24 11:59 Temperature Source Temporal Artery Scan 10/30/24 11:59 Pulse Rhythm Regular 10/30/24 11:59 Respiratory Rate 20 10/30/24 11:59 Blood Pressure 154/101 H 10/30/24 11:59 Blood Pressure Mean 118 H 10/30/24 11:59 Blood Pressure Position Sitting 10/30/24 11:59 Pulse Oximetry 95 10/30/24 11:59 Oxygen Delivery Method Room Air 10/30/24 11:59 Vital Signs Temperature 97 F L 10/30/24 11:59 Respiratory Rate 20 10/30/24 11:59 Blood Pressure 154/101 H 10/30/24 11:59 Pulse Oximetry 95 10/30/24 11:59 Oxygen Delivery Method Room Air 10/30/24 11:59 Temperature 97 F L 10/30/24 11:59 Pulse Rate 82 10/30/24 13:58 Respiratory Rate 16 10/30/24 13:58 Blood Pressure 146/81 H 10/30/24 13:58 Pulse Oximetry 96 10/30/24 13:58 Oxygen Delivery Method Room Air 10/30/24 13:58 Medical Decision Making MDM Narrative Medical decision making narrative: Very pleasant 69-year-old gentleman on baby aspirin but no other anticoagulants referred from Urgent Care to the ER today for epistaxis from his left nostril. After workup here in the ER where a able to identify likely site of bleeding on the patient's left nasal septum about a cm or 2 in from the left nostril. This was cauterized. Successful hemostasis was achieved. At this point I do not think the patient needs further nasal packing or immediate ENT evaluation. He since he is hemodynamically stable and not symptom medically dizzy I do not think he needs hemoglobin monitoring or check. We discussed supportive care for nosebleeds at home. We discussed care for recurrent nose bleeds at home and precautions for return to the ER. Would recommend follow-up with ENT for re-evaluation. Patient has will call further ENT follow-up appointment. Discharge Plan Discharge Clinical Impression: Epistaxis Patient Disposition: Home, Self-Care Condition: Stable Instructions: Nosebleed (ED) Additional Instructions: As we discussed, please return to the ER right away if you have recurrent nosebleed that does not stop after 10 minutes of direct pressure. Please follow-up with ENT for a recheck within 1-2 weeks. You can to arrange your your follow-up appointment Prescriptions: No Action potassium chloride 20 mEq tablet,ER particles/crystals 20 meq PO BID hydrochlorothiazide 25 mg tablet 25 mg PO DAILY losartan 50 mg tablet 50 mg PO DAILY aspirin [Adult Low Dose Aspirin] PO Follow Up/Referrals: Denzel Camargo MD [Primary Care Provider] - Stand Alone Forms: [employer] Info Instructions
--- OUTSIDE RECORDS SUMMARY | 2024-10-30 13:57 | XMS_ITS | Clinical Summary ---
Author Organization [employer] [facility] Address [address] [place] [id number] Care Team Providers Care Mandrel Maker Name Role Phone Denzel aCmargo MD Primary Care Provider Allergies Active Allergy Reactions Criticality Noted Date Comments Amlodipine Other - Describe In Comment Field 02/03/2016 Edema on 10mg, ok on 5mg. Medications cholecalciferol (VITAMIN D) 1,000 unit tablet Take 1 tablet by mouth once daily. 0 9 Active aspirin (ECOTRIN) 81 mg enteric coated tablet Take 1 Tablet (81 mg) by mouth once daily with a meal. 0 2 Active hydroCHLOROthiaz elvie 25 mg tabletIndication s:Hypertension, unspecified type Take 1 Tablet (25 mg) by mouth once daily. 90 Tablet 3 4 Active potassium chloride (KLOR-CON M20) 20 mEq extended-release tablet (part/cryst)Ashlee cations:Hyperten haris, unspecified type Take 1 Tablet (20 mEq) by mouth two times daily with meals. 180 Tablet 3 4 Active losartan (COZAAR) 50 mg tabletIndication s:Hypertension, unspecified type Take 1 Tablet (50 mg) by mouth once daily. 90 Tablet 3 4 Active CPAPIndications: PAULA (obstructive sleep apnea) RESMED CPAP (E0601) machine for home use at pressure: 10-20 cmw, Choice of mask (A7030 or A7034) w/full face cushion (A7031) x1/mo, nasal cushion (A7032) x2/mo, or nasal pillows (A7033) x 2/mo; Length of Need: 99 months; Frequency of use: Daily 1 Each 4 Active Active Problems Problem Noted Date Diagnosed Date Bilateral lower extremity edema 03/25/2024 Paresthesia bilateral feet 03/18/2021 Stroke 201103/12/2020 Prostate cancer: Cryo treatment 04/07/20212017 Vitamin D insufficiency 12/28/2015 Impaired fasting glucose 11/18/2013 Unspecified essential hypertension 11/18/2013 PFO (patent foramen ovale) 05/13/2012 Colon polyp 03/17/2011 Overview (07/15/2021): Colonoscopy 03/2011 polyp repeat in 5 years Colonoscopy 01/2016 polyp repeat in 5 years Colonoscopy 07/2021 normal, repeat in 5 years Unspecified hearing loss Overview (03/12/2007): hearing loss in left ear. Wears a hearing aid. 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 Encounters Date Type Department Care Team Description 10/30/2024 Nurse Triage [facility] [address] [place], [place] [id number] Denzel Camargo MD Nose Problem from Last 3 Months Immunizations Immunization Administration Dates Next Due AMB Influenza, IIV4 PF (=>6 mos Flulaval,Fluzone Fluarix)(Flu Clinic Only) 05/02/2014 COVID-19 VACCINE SPIKEVAX (M ODERNA 50MCG/0.5ML) 12YO+ PFS 05/29/2024 COVID-19 vaccine (Moderna 100mcg/0.5mL) PF, MDV 12/01/2020,11/03/2020 COVID-19 vaccine ([employer]-Bio NTech 30mcg/0.3mL) 12YO+ MARIA EUGENIA-SUCROSE PF, MDV 03/15/2022 COVID-19 vaccine (Pfizer-Bio NTech 30mcg/0.3mL) PF, MDV 07/11/2021 HepA-HepB (Twinrix) 04/05/2012,11/03/2011,201110/27/2011 Influenza Virus, Unspecified 05/13/2012,05/31/20 11 Influenza, High-dose Quadriv alent Inactivated 05/06/2022 Influenza, IIV3 (Age 6-35 mos) 05/19/2009 Influenza, IIV3 (Age >=3 years) 08/24/19 19,05/28/2013,05/22/2012,05/23,06/08/2010,06/01/2009 Influenza, IIV4 05/03/2021,05/07/2019,05/21/2017 Influenza, IIV4 (=>6mos) MDV 06/10/2015 Influenza, Inactivated AIIV4 (Age 65+ Years) Preserv Free 06/07/2023 Influenza, Inactivated IIV3 (Age 65+ Years) Preserv Free 05/29/2024 Influenza, Injectable, Mdck, Quadrivalent, W/preservative 08/24/2018 Influenza,CCIIV4 PRESERV FREE 05/04/2020, 019 Pneumococcal Conj 20-valent (Prevnar 20) 03/21/2023 Td (Age >=7 Years) 03/26/2003 Tdap 05/06/2022,09/27/2011 Typhoid (injectable) 03/23/2014 Zoster (Shingrix-RZV, recombinant) 07/03/2020, Zoster (Zostavax-ZVL, live) 05/17/2017 Family History Medical History Relation Name Comments Other Father d70 - kidney fa ilure Cancer-breast Maternal Grandmother Arthritis Mother Cancer-colon Neg. Cancer-prostate No Family History Diabetes No Family History Heart Disease No Family History Stroke No Family History Relation Name Status Comments Father Maternal Grandmother Mother Neg. Social History Tobacco Use Types Packs/Day Years Used Date Smoking Tobacco: Former Cigarettes 0.5 26 0 08/13/1973 - 08/13/1999 Smokeless Tobacco: Former Tobacco Cessation:Counseling Given: No Alcohol Use Standard Drinks/Week Comments Yes 0 (1 standard drink = 0.6 oz pur e alcohol) 2 to 4 beers per day PHQ-2 Answer Date Recorded PHQ-2 TOTAL SCORE 0 03/25/2024 Social Connections Answer Date Recorded Do you often feel lonely or isolated from those around you? 0 03/25/2024 Financial Resource Strain Answer Date R ecorded Difficulty of Paying Living Expenses 3 03/25/2024 Difficulty of Paying Living Expenses Not on file 03/25/2024 Food Insecurity Answer Date Recorded Do you worry your food will run out before you are able to buy more? 1 03/25/2024 Transportation Needs Answer Date Record ed Does lack of transportation keep you from medica l appointments? 1 03/25/2024 Does lack of transportation keep you from work, meetings or getting things that you need? 1 03/25/2024 Housing Stability Answer Date Recorded What is your housing situation today? 1 03/25/2024 Utilities Answer Date Recorded Do you have trouble paying f or utilities (for example, heat, electricity, water, phone)? 1 03/25/2024 Sex and Gender Information Value Date Recorded Sex Assigned at Not on file Legal Sex Male 5:26 AM EMAIL MARKETING MANAGER Gender Identity Not on file Sexual Orientation Not on file Obstetrics History Last Filed Vital Signs Vital Sign Reading Time Taken Comments Blood Pressure 169/97 06/26/2024 9:50 AM EMAIL MARKETING MANAGER Pulse 93 06/26/2024 9:50 AM EMAIL MARKETING MANAGER Temperature 37 C (98.6 F) 04/07/2021 12:15 PM CDT Respiratory Rate 16 04/07/2021 12:15 PM CDT Oxygen Saturation 96% 06/26/2024 9:50 AM EMAIL MARKETING MANAGER Inhaled Oxygen Concentration - - Weight 109.3 kg (241 lb) 04/22/2024 9:12 AM CDT Height 176 cm (5' 9.29) 06/26/2024 9:50 AM EMAIL MARKETING MANAGER Body Mass Index 35.29 03/25/2024 3:30 PM CDT Plan of Treatment Health Maintenance Due Date Last Done Comments RSV vaccine for adults or (1 - Risk 60-74 years 1-dose series) 2016 COVID-19 vaccine series ( season) 2024 05/29/2024, 03/15/2022, 07/11/2021, Additional history exists Lipids for age 45-75 03/12/2025 03/12/2020, 03/26/2019, 11/19/2013, Additional history exists BMI (ht and wt on same day) for age 18+ 03/25/2025 03/25/2024, 03/21/2023, 03/15/2022, Additional history exists Depression screening for age 12+ 03/25/2025 03/25/2024, 03/22/2023, 03/21/2023, Additional history exists Medicare Wellness for age 65+ 03/26/2025, 03/21/2023, 03/15/2022 Colonoscopy through age 75 07/15/202607/15, 07/15/2021, 07/15/2021, Additional history exists Tetanus booster 05/06/2032 05/06/2022, 09/13, 03/26/2003 Hepatitis C screening for ag e 18-79 Completed 02/28/2018, 11/19/2013 Zoster (shingles) series for age 50+ Completed 07/03/2020, 03/12/2020, 05/17/2017 Tdap Completed 05/06/2022, 09/27/2011 Pneumococcal series for age 50+ Completed AAA screening age 65-74 Completed 03/27/2023 Influenza Vaccine Completed 05/29/2024, , 05/03/2021, Additional history exists Procedures Procedure Name Priority Date/Time Associated Diagnosis Comments US AORTA Routine 03/27/2023 9:11 AM CDT Screening for AAA (abdominal aortic aneurysm) COLONOSCOPY SCREENING Routine 07/15/2021 7:22 AM EMAIL MARKETING MANAGER History of colon polyps LIPID PANEL W REFLEX MEASURED LDL Routine 03/12/2020 10:26 AM CDT Lipid screening ANTI HCV Routine 02/28/2018 11:51 AM CDT Need for hepatitis C screening test from Last 3 Months or Most Recently Relevant to Health Maintenance Results * US AORTA (03/27/2023 9:11 AM CDT) Anatomical Region Laterality Modality Abdomen, AORTA Ultrasound 03/28/2023 7:00 AM CDT Narrative 03/28/2023 7:00 AM CDT For Patients: As a result of the Cures Act, medical imaging exams and procedure reports are released immediately into your electronic medical record. You may view this report before your referring provider. If you have questions, please contact your health care provider. Examination: US abdominal aorta Indication: Abdominal aortic aneurysm screening. Technique: Delgadillo scale and color Doppler images of the aorta and common iliac arteries are obtained. 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 Impression: No evidence of abdominal aortic aneurysm within the visualized aorta. Dictated by Karsten Figueroa MD @ Mar 28 2023 7:00AM (Electronically Signed) Procedure Note Karsten Figueroa MD - 03/28/2023 For Patients: As a result of the Cures Act, medical imagingexams and procedure reports are released immediately into your electronicmedical record. You may view this report before your referring provider.If you have questions, please contact your health care provider. Examination: US abdominal aorta Indication: Abdominal aortic aneurysm screening. Technique: Delgadillo scale and color Doppler images of the aorta and common iliac arteriesare obtained. Comparison: None Findings: Proximal aorta: 2.8 x 2.4 cm Mid aorta: Not visualized due to overlying bowel gas Distal aorta: 2.1 x 2.0 cm Right common iliac artery: 1.5 x 1.5 cm Left common iliac artery: 1.6 x 1.3 cm Anechoic cyst with increased through transmission within the livermeasuring 3.1 cm. Impression: No evidence of abdominal aortic aneurysm within the visualized aorta. Dictated by Karsten Figueroa MD @ Mar 28 2023 7:00AM (Electronically Signed) us Denzel Camargo MD US Final Result * COLONOSCOPY (07/15/2021 7:31 AM EMAIL MARKETING MANAGER) 07/15/2021 7:31 AM EMAIL MARKETING MANAGER Narrative Transcriptions Last Sadler MD - 07/15/2021 8:30 AM CST Patient Name: Trip Pires Procedure Date: 07/15/2021 Gender: Male Date of : 1955 Admit Type: Outpatient Procedure: Colonoscopy Proceduralist: Last Sadler MD , Arleth Gonzalez, RN(Nurse) Referring MD: Denzel Camargo Indications/Pre-Op Diagnosis: High risk colon cancer surveillance:Personal history of adenoma (10 mm or greater insize), Last colonoscopy: March 2016 Medications: Fentanyl 100 micrograms IV, Midazolam 4 mgIV, The level of sedation administered wasmoderate Procedure Description: The patient had risks, benefits and alternatives explained to andgave informed consent. The patient had a stable cardiopulmonary status and judged an adequate candidate for conscious sedation. The Colonoscope was passed through the anus and advanced to thececum, identified by appendiceal orifice and ileocecal valve. Thecolonoscopy was performed without difficulty. The patient tolerated the procedure well. The quality of the bowel preparation was good. The ileocecal valve, appendiceal orifice, and rectum were photographed. Complications: No immediate complications. Estimated Blood Loss & Specimen: Estimated blood loss: none. Findings: The perianal and digital rectal examinations were normal. The entire examined colon appeared normal on direct and retroflexion views. Impressions/Post-Op Diagnosis: - The entire examined colon is normal on direct and retroflexionviews. - No specimens collected. Recommendation: - Patient has a contact number available for emergencies. The signsand symptoms of potential delayed complications were discussed with the patient. Return to normal activities tomorrow. Written discharge instructions were provided to the patient. - Resume previous diet. - Continue present medications. - Repeat colonoscopy in 5 years for surveillance. Moderate Sedation: Moderate (conscious) sedation was administered by the endoscopy nurse and supervised by the endoscopist. The following parameters were monitored: oxygen saturation, heart rate, respiratory rate, blood pressure, adequacy of pulmonary ventilation and reponse to care. Please refer to the patient's medical record flowsheets and nursing notes for moderate sedation details. Total physician intraservice time was 18 minutes. Last Sadler MD 07/15/2021 8:30:06 AM This report has been signed electronically. Note Initiated On: 07/15/2021 7:31 AM Scope In: 8:08:28 AM Scope Withdrawal Time 0 hours 10 minutes 58 seconds Scope Out: 8:24:51 AM us Last Sadler MD PROCEDURE ORD Final Res ult * LIPID PANEL W REFLEX MEASURED LDL (03/12/2020 10:26 AM CDT) CHOLESTEROL,TOTAL 173 100 - 199 mg/dL 03/12/2020 4:41 PM CDT [facility] TRIGLYCERIDES 83 <150 mg/dL 03/12/2020 4:41 PM CDT [facility] HDL CHOLESTEROL 61 >40 mg/dL 0 4:41 PM CDT [facility] NON-HDL CHOLESTEROL 112 <145 mg/dl 03/12/2020 4:41 PM CDT [facility] CHOL/HDL RATIO 2.84 <4.50 03/12/2020 4:41 PM CDT [facility] LDL CHOLESTEROL 95 <=130 mg/dL 03/12/2020 4:41 PM CDT [facility] PROVIDER ORDERED STATUS RANDOM 03/12/2020 4:[address] [facility] Blood BLOOD SPECIMEN / Unknown Venipuncture / Unknown 03/12/2020 10:26 AM CDT 03/12/2020 10:26 AM CDT us Denzel Camargo MD CHEMISTRY Final Result [facility] [address] [place] [address], [place] [facility] [address] [place] [address], [place] [phone] * ANTI HCV (02/28/2018 11:51 AM CDT) HEPATITIS C ANTIBODY Non-React maribeth Non-React maribeth 02/28/2018 5:23 PM CDT [facility] Comment:Antibodies to HCV no t detected; does not exclude the possibility of exposure to HCV. Blood BLOOD SPECIMEN / Unknown Venipuncture / Unknown 02/28/2018 11:51 AM CDT 02/28/2018 11:51 AM CDT us Denzel Camargo MD SEND OUTS Final Result [facility] [address] [place] [address], [place] from Last 3 Months or Most Recently Relevant to Health Maintenance Insurance BLUE CROSS [employer] BLUE MR PB ONLY Advance Directives Documents on File Type Date Recorded Patient Auditor Tax Expl anation Healthcare Directive 05/16/2021 1:36 PM Healthcare Directive 08/25/2004 005 * Full Code (Latest Code Status on File) Date Activated Date Inactivated Comments 04/07/2021 8:04 AM 04/07/2021 3:38 PM Question Answer Comments Code Status Discussion: Not Discussed Care Teams Mandrel Maker Relationship Specialty Start Date End Date Denzel Camargo MD [address] [place] [address] PCP - General 01/28/07
--- OUTSIDE RECORDS SUMMARY | 2024-10-30 13:57 | XMS_ITS | Clinical Summary ---
Author Organization [facility] Address [address], [place] [address] Care Team Providers Care Office Services Specialist Name Role Phone Denzel Camargo MD Primary Care Provider Source Comments You are receiving this document as you are listed as the primary care provider,follow-up provider, or the patient has been referred to you for consultation.This is in compliance with the Medicare and[employer] EHR Incentive Program,which states Providers who transition their patient to another setting of careor provider of care or refers their patient to another provider of care shouldprovide summary care record for each transition of care or referral. [facility] [facility] Social History Tobacco Use Types Packs/Day Years [...] 12/11/2024 11:30 AM CDT Appointment Audiology at [facility] [address] [address] Gregoria Kaur AU.D. [address] [place] [address] Health Maintenance Due Date Last Done Comments [...] patient's age to complete this topic Insurance [facility] BLUE MEDICARE MANAGED CARE [facility] Care Teams Office Services Specialist Relationship Specialty Start Date End Date Denzel Camargo MD [address] [place], [place] [id number] PCP - General Family Practice 03/26/24
[2024-10-30 13:58] VITALS: BP 146/81; PULSE 82; RESP 16; O2SAT 96
== END 2024-10-30 14:02 | disposition home or self-care (01) ==
LOC: ED 13:55
PROVIDERS: Emergency Provider Emergency Medicine; PCP Family Medicine
DX: R04.0 Epistaxis (principal)
CPT/HCPCS: 30901; 99282; 99283

== ENCOUNTER 2024-11-17 09:01 | Outpatient (CLI) | payer MEDICARE, BC, SELFPAY ==
--- NOTE | 2024-11-17 09:15 | MR_ITS ---
EXAM: MRI of the LEFT SHOULDER, without contrast CLINICAL: Left shoulder pain. Evaluate for osteoarthritis, avascular necrosis and rotator cuff pathology. COMPARISONS: X-rays 11/10/2024. TECHNICAL: Multiplanar multisequence MRI of the left shoulder was obtained. SEDATION: None. CONTRAST: None. FINDINGS: Rotator cuff: Supraspinatus/Infraspinatus: There is mild tendinosis of the distal supraspinatus tendon. There is moderate tendinosis and superimposed partial interstitial insertional tearing of the distal infraspinatus tendon involving up to 65% of the tendon thickness on coronal series 5 images 18-21. There is mild fatty infiltration/atrophy of the supraspinatus and infraspinatus muscles. Teres minor: No tendinosis, tear or atrophy. Subscapularis: There is tendinosis with superimposed partial interstitial insertional tearing of the distal tendon on axial series 4 images 18-20. No significant fatty atrophy of the muscle. Bursae: Subacromial-subdeltoid: No significant bursal fluid. Subcoracoid: Marked bursal fluid with internal synovitis/bodies noted. Coracoacromial arch: Acromion morphology: Type I to II. No os acromiale. Acromiohumeral space: Within normal limits. Coracohumeral space: Within normal limits. Biceps tendon, long head: There is mild tendinosis of the intra-articular tendon with marked fluid about the imaged proximal extra articular tendon. No tendon rupture or displacement. Glenohumeral joint: Large glenohumeral joint effusion with synovitis/intra-articular bodies noted. Articular cartilage: There is full-thickness chondral loss throughout the glenohumeral joint. Capsule: No evidence of capsular thickening or injury. Labrum: There is attenuation and tearing throughout the entire glenoid labrum. Bones: There are advanced changes of glenohumeral osteoarthritis including degenerative peripheral marginal spurring, subchondral marrow edema and subchondral cystic changes involving the glenohumeral joint. There is advanced articular surface wear involving the glenoid with articular surface wear/remodeling also seen to involve the humeral head. Suspect sequelae of prior fracture involving the posterior glenoid. No additional evidence of fracture and there is no dislocation. No evidence of signal changes of avascular necrosis. Acromioclavicular joint: Moderate degenerative hypertrophic changes are seen to involve the AC joint. No AC joint widening. IMPRESSION: 1. Advanced glenohumeral osteoarthritis including advanced articular surface wear involving the glenoid and advanced articular surface wear/remodeling also seen to involve the humeral head. Large glenohumeral joint effusion with synovitis/intra-articular bodies and there is also marked fluid with synovitis/bodies also noted within the subcoracoid bursa. Suspect sequelae of prior fracture involving the posterior glenoid. 2. Partial interstitial insertional tearing of the distal infraspinatus tendon superimposed upon moderate tendinosis. Mild tendinosis of the distal supraspinatus tendon. There is also tendinosis and partial interstitial insertional tearing of the distal subscapularis tendon. 3. Mild tendinosis of the intra-articular long head biceps tendon with marked fluid about the imaged proximal extra-articular tendon. 4. Moderate degenerative hypertrophic change involving the AC joint. JCZ Electronically signed on 11/17/2024 2:50:00 PM by Eloy Garces D.O.
== END 2024-11-17 09:02 | disposition home or self-care (01) ==
LOC: MRI 09:02
PROVIDERS: PCP Family Medicine; Visit Provider Orthopaedic Surgery
DX: M25.512 Pain in left shoulder (principal); M19.012 Primary osteoarthritis, left shoulder; M75.102 Unspecified rotator cuff tear or rupture of left shoulder, not specified as traumatic; S46.812A Strain of other muscles, fascia and tendons at shoulder and upper arm level, left arm, initial encounter
CPT/HCPCS: 73221

== ENCOUNTER 2024-12-09 06:57 | Day surgery (SDC) | payer MEDICARE, BC, SELFPAY ==
[2024-12-09] VITALS (15 sets, daily range): BP systolic 115–151; BP diastolic 78–91; PULSE 69–75; RESP 10–20; TEMP 36–36.5; O2SAT 90–96; BMI 36.5
[2024-12-09] MEDS: SODIUM CHLORIDE 0.9 % (FLUSH) 10 ML SYRINGE IVF (08:05)
[2024-12-09] MEDS: LACTATED RINGERS 1000 ML 1,000 ML 100 ML IV ×2 (08:05→12:00)
[2024-12-09] MEDS: OXYCODONE (CR) 10 MG TAB.ER.12H PO (08:22)
[2024-12-09] MEDS: CELECOXIB 200 MG CAPSULE PO (08:23)
[2024-12-09] MEDS: ACETAMINOPHEN 500 MG TABLET 1000 MG PO ×2 (08:23→14:23)
[2024-12-09] MEDS: fentaNYL 100 MCG/2 ML inj IVP (09:02)
[2024-12-09] MEDS: MIDAZOLAM HCL 1 MG/ML inj IVP (09:02)
--- NOTE | 2024-12-09 09:07 | SUR.PREOP ---
TIME?OUT:?0900, left shoulder PT/RN/MDA?VERIFICATION?OF?SURGICAL?SITE,?PROCEDURE,?AND?CONSENT OBTAINED?PRIOR?TO?INVASIVE?PROCEDURE.
[2024-12-09] MEDS: CEFAZOLIN 1 GM inj IVP (09:45)
[2024-12-09] MEDS: TRANEXAMIC ACID 100 MG/ML INJ 1000 MG IV (09:50)
--- NOTE | 2024-12-09 12:40 | CRLHL7_ITS ---
For Patients: As a result of the Cures Act, medical imaging exams and procedure reports are released immediately into your electronic medical record. You may view this report before your referring provider. If you have questions, please contact your health care provider. Indication: Postop reverse shoulder arthroplasty. Technique: Two portable views of the left shoulder were obtained. Comparison: Left shoulder radiograph 11/10/2024 Findings: A non cemented reverse total shoulder arthroplasty has been placed. There are postoperative changes within the left shoulder soft tissues. No other retained radiopaque metallic surgical foreign body is identified. Impression: Status post left shoulder arthroplasty. Dictated by Sukhjinder Barney MD @ 12/10/2024 12:47:27 PM (Electronically Signed)
--- NOTE | 2024-12-09 12:42 | PM.ORPRC ---
Procedure Note Date of procedure: 12/09/24 Procedure: PREOPERATIVE DIAGNOSIS: Left shoulder end-stage glenohumeral joint osteoarthritis, rotator cuff tendinopathy POSTOPERATIVE DIAGNOSIS: Left shoulder end-stage glenohumeral joint osteoarthritis, rotator cuff tendinopathy NAME OF OPERATION: Left upper extremity reverse shoulder arthroplasty, biceps tenodesis SURGEON: Chad Canseco MD EQUIPMENT OR MACHINERY CLEANER: Dulce Maria Rankin PA-C, MARAH Balderrama, Anita Hsu, MS4 ANESTHESIA: General endotracheal ESTIMATED BLOOD LOSS: 650 mL COMPLICATIONS: None SPECIMENS: Sent for gross and microscopic pathology, labeled left shoulder, deep soft tissue mass DRAINS: None PREOPERATIVE ANTIBIOTICS: Ancef 2 grams IMPLANTS: 1. Tornier 25mm x 35 mm baseplate 2. 39 mm standard glenosphere 3. 7B humeral stem 4. High eccentric +12 humeral tray 5. 39 mm +6 polyethylene INDICATIONS: The patient is a 69-year-old with a longstanding history of severe, unrelenting left shoulder pain secondary to rotator cuff tear arthropathy. Despite appropriate nonoperative management, including activity modification, anti-inflammatories, [id number] pain medication, physical therapy, and injections they continue to have pain and disability. Operative intervention was offered. The risks, benefits and expected outcomes were discussed in detail. These included but were not limited to: Infection, bleeding, injury to blood vessel or nerve, venous thromboembolism. All questions were answered to their satisfaction. Use of an desk assistant was necessary throughout the case for patient positioning and safety, soft tissue retraction, and closure. PROCEDURE: General anesthesia was administered. The patient was placed in the lazy beach chair position on the operating room table. The left upper extremity was prepped and draped in the usual sterile fashion. A standard deltopectoral incision was made. Subcutaneous dissection was taken with electrocautery to the deltopectoral interval. The cephalic vein was mobilized, lateral branches were cauterized. The vein was taken medially with the pectoralis. We bluntly entered the deltopectoral interval. We freed up the deltoid. There was a deep soft tissue mass, anterior to the subscap. It appears to be comprised of fat and cyst like soft tissues. It was excised off of the subscap and anterior biceps and sent for gross and microscopic pathology labeled left shoulder deep soft tissue mass. The upper 1/3 of the insertion of the pectoralis was divided with cautery. The static retractor was placed. The clavipectoral fascia and CA ligament were divided. The circumflex vessels were controlled with electrocautery. The biceps was dissected out of the bicipital groove, was tagged with a #2 FiberWire suture and divided proximally. Two fiberWire sutures were placed in the subscapularis. The subscap was subperiosteally elevated off of the lesser tuberosity. The humeral head was delivered into the wound. The intramedullary humeral cutting guide was placed. We made the cut at the anatomic neck, in 30? of retroversion. Humeral sounds were used to assess the diameter of the canal. The broach was placed and had good rotational stability. The calcar reamer was used and the protective base plate cover was placed. Attention was then turned to the glenoid. Hohmann retractors were placed posteriorly. The labrum and biceps stump were sharply debrided. The origin of the inferior glenohumeral ligaments were subperiosteally released off of the glenoid. The drill guide was placed. The guide pin was placed in 0? of cephalic tilt. The reamer was used. The bone was markedly sclerotic. The central drill was used x2. The tap was used. The standard base plate was placed. This had excellent purchase. Locking screws x 2 were placed. The glenosphere was placed, the set screw was tightened. Attention then returned to the humerus. We placed a high eccentric standard base plate and standard poly. We reduced the shoulder and took it through a range of motion. It was thought to be stable. Trial humeral components were removed. The biceps was tenodesed in the bicipital groove with drill holes and our previously placed FiberWire suture. We placed #2 FiberWire sutures in the lesser tuberosity for subsequent subscap repair. We assembled the humeral component on the back table. We placed it in the center of our subscapularis repair sutures and tapped it down to our humeral cut. This had excellent purchase. The shoulder was reduced and was found to be unstable with poor soft tissue tension. We therefore removed tray and the polyethylene and trialed the +6 and finally the +12 tray. The +12 tray with the +6 polyethylene provided excellent stability. Therefore, we impacted the 12 mm high eccentric tray. Finally, we impacted the 39 mm +6 polyethylene. The shoulder was stable, with appropriate soft tissue tension. We did a 3 min dilute Betadine solution soak. We irrigated the wound with 3 L of normal saline via pulse lavage. We repaired the subscapularis to the lesser tuberosity with our previously placed FiberWire sutures. The deltopectoral interval was loosely reapproximated with an 0 Vicryl in an interrupted gzgenl-mj-[id number] fashion. Subcutaneous tissues were closed with the 2-0 Vicryl and a running 3-0 Monocryl suture. The skin was sealed with glue. A dry dressing and sling were applied. Sponge and needle counts were correct x2. The patient tolerated the procedure well, there were no apparent complications. They were awakened and extubated in the operating room, taken to the postanesthesia care unit in satisfactory condition. PLAN: The patient will be mobilized with physical therapy. The sling will be used for 6 weeks postoperatively. Active range of motion in forward flexion and abduction as tolerates. No external rotation greater than 0? for 6 weeks postoperatively. They will be discharged to home once medically appropriate.
--- NOTE | 2024-12-09 13:30 | P.ANES_ITS ---
Anesthesia Charges Start Date/Time Anesthesia Start Date: 12/09/24 Anesthesia Start Time: 09:34 Stop Date/Time Anesthesia Stop Date: 12/09/24 Anesthesia Stop Time: 13:28 Coding CPT Codes CPT Codes: ANESTH SHOULDER REPLACEMENT - 54088 ([id number]) P3 - PATIENT W/SEVERE SYS DISEASE, QK - ELEVATOR REPAIRER 2-4 CNCRNT ANES PROC, QX - SENIOR NAVAL PARACHUTIST SVC W/ MD MED DIRECTION
--- NOTE | 2024-12-09 13:30 | W.ANESCHARGE ---
Anesthesia Charges Start Date/Time Anesthesia Start Date: 12/09/24 Anesthesia Start Time: 09:34 Stop Date/Time Anesthesia Stop Date: 12/09/24 Anesthesia Stop Time: 13:28 Coding CPT Codes CPT Codes: ANESTH SHOULDER REPLACEMENT - 19691 ([id number]) P3 - PATIENT W/SEVERE SYS DISEASE, QK - POST TRONIC MACHINE OPERATOR 2-4 CNCRNT ANES PROC, QX - CABLE MOCK UP ASSEMBLER SVC W/ MD MED DIRECTION
--- NOTE | 2024-12-09 14:23 | P.ANES_ITS ---
Anesthesia Charges Start Date/Time Anesthesia Start Date: 12/09/24 Anesthesia Start Time: 09:34 Stop Date/Time Anesthesia Stop Date: 12/09/24 Anesthesia Stop Time: 13:28 Coding CPT Codes CPT Codes: ANESTH SHOULDER REPLACEMENT - 70295 ([id number]) QK - LAMPS TESTER AND INSPECTOR 2-4 CNCRNT ANES PROC, QX - MAINTENANCE INSPECTOR SVC W/ MD MED DIRECTION, P3 - PATIENT W/SEVERE SYS DISEASE
--- NOTE | 2024-12-09 14:23 | W.ANESCHARGE ---
Anesthesia Charges Start Date/Time Anesthesia Start Date: 12/09/24 Anesthesia Start Time: 09:34 Stop Date/Time Anesthesia Stop Date: 12/09/24 Anesthesia Stop Time: 13:28 Coding CPT Codes CPT Codes: ANESTH SHOULDER REPLACEMENT - 08446 ([id number]) QK - PUTTY MAKER 2-4 CNCRNT ANES PROC, QX - DIRECTOR INDEX SVC W/ MD MED DIRECTION, P3 - PATIENT W/SEVERE SYS DISEASE
--- NOTE | 2024-12-09 14:24 | W.PM.NB ---
Nerve Block Nerve Block Time Seen by Provider: 09:04 Date Seen: 12/09/24 Type of block requested by surgeon for post-operative analgesia: supraclavicular Side: left Time out performed: Yes Verification of patient name: Yes Verification of date of : Yes Site marking: site marked Name of person performing procedure: Ike Continuous monitoring Was continuous monitoring of O2 sat, B/P, cardiac technician, recorded every 15 minutes?: Yes Procedure Checklist: sterile prep, needles and gloves Ultrasound guided. Images saved: Yes Medications given in 5ml increments after negative aspiration: Ropivicaine %: 0.5 mL: 20 Needle gauge: 22 Precedex (mcg): 25 Patient tolerated procedure well: Yes Block Charges Block Charge (with Pro Fee): Brachial Plexus Use of Ultrasound Machine for Block: Yes- US Guidance/pain block
--- NOTE | 2024-12-09 16:02 | SUR.PHASEII ---
Pt met with OT, Sapna, and sofia. Will review D/c instructions and pt will D/c to home with his .
== END 2024-12-09 16:19 | disposition home or self-care (01) ==
LOC: OR 06:57
PROVIDERS: PCP Family Medicine; Visit Provider Orthopaedic Surgery
PROC: 0RRJ0JZ Replacement of Right Shoulder Joint with Synthetic Substitute, Open Approach (ICD-10-PCS; CPT 23472; principal; 2024-12-09 08:45)
DX: M19.012 Primary osteoarthritis, left shoulder (principal); M75.102 Unspecified rotator cuff tear or rupture of left shoulder, not specified as traumatic; G89.18 Other acute postprocedural pain; I10 Essential (primary) hypertension; Z86.73 Personal history of transient ischemic attack (TIA), and cerebral infarction without residual deficits; Z87.891 Personal history of nicotine dependence; G47.33 Obstructive sleep apnea (adult) (pediatric); Z79.82 Long term (current) use of aspirin; R73.03 Prediabetes
CPT/HCPCS: 23472; 23430; 01638; 64415; 73030; 76942; 88307; 97110; 97165; A9270; C1713; C1776; J0330; J0690; J1100; J1171; J2250; J2405; J2704; J2795; J3010; J3490; J7120

== ENCOUNTER 2025-02-19 11:15 | Outpatient (RCR) | payer MEDICARE, BC, SELFPAY ==
--- NOTE | 2024-12-26 10:48 | PT.OPEX ---
PT [facility] Out[facility] Eval PT [facility] Outpatient Eval Start: 12/26/24 07:53 Freq: Status: Active Protocol: Document 12/26/24 07:54 LISA (Rec: 12/26/24 10:48 LISA [id number]) E-signed By Nikki Gabriel PT Physical Therapy Outpatient Evaluation Insurance Information Recert Due Date 03/25/25 Insurance Name Medicare B Medical Diagnosis S/P rTSA , BICEPS TENODESIS R SHOULDER OA, PARTIAL SUPRASPINATUS TEARING, MOD AC ARTHROSIS Treating Diagnosis L SHOULDER PAIN L SHOULDER STIFFNESS L SHOULDER WEAKNESS Imaging Report Information 11/17/44 MRI: 1. Advanced glenohumeral osteoarthritis including advanced articular surface wear involving the glenoid and advanced articular surface wear/remodeling also seen to involve the humeral head. Large glenohumeral joint effusion with synovitis/intra- articular bodies and there is also marked fluid with synovitis/bodies also noted within the subcoracoid bursa. Suspect sequelae of prior fracture involving the posterior glenoid. 2. Partial interstitial insertional tearing of the distal infraspinatus tendon superimposed upon moderate tendinosis. Mild tendinosis of the distal supraspinatus tendon. There is also tendinosis and partial interstitial insertional tearing of the distal subscapularis tendon. 3. Mild tendinosis of the intra-articular long head biceps tendon with marked fluid about the imaged proximal extra-articular tendon. 4. Moderate degenerative hypertrophic change involving the AC joint. Referring MD WATSON Subjective Preferred Name DEANDRE Subjective DEANDRE ARRIVES WITH HIS WEARING HIS SLING AND REPORTING VIRTUALLY NO PAIN. HE HAS BEEN PERFORMING HIS INSTRUCTED EXERCISES PROVIDED PREOPERATIVELY AND USING ICE INTERMITTENTLY WITH REGULAR DOSING OF TYLENOL. HE NO LONGER NEEDS ANY NARCOTICS FOR SYMPTOMS MGMT. HE IS SLEEPING IN HIS RECLINER AND ASKS WHEN HE CAN RETURN TO BED WELL WHEN CAN HE RETURN TO DRIVING. BOTH ARE ADDRESSED DURING THE EVALUATION/PATIENT EDUCATION. 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 HE HAS NOT SIGNIFICANT TRAUMA TO THE SHOULDER BUT RATHER PROGRESS PAIN AND DYSFUNCTION. 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 Active range of motion in forward flexion and abduction as tolerates. No external rotation greater than 0? for 6 weeks postoperatively. PMHX: H/O L MAGDALENO 2006, R KNEE ACL 92, HTN, [place] W/HEARING AIDS Weight Bearing Status Non-Weight Bearing Therapy Limitations/Systems Review Hearing Objective Other/Pertinent Objective 12/26/24: MODERATE EDEMA ABOUT THE SHOULDER AND ECCHYMOSIS TO THE UE AND CHEST WALL. SUPINE ROM 90/90/0 (RESTRICTED PER [facility] PROTOCOL)/ 24 @ 45SCAPTION; INCISION PRISTINE AND ABSENT OF S/S OF INFECTION . Functional Test Performed & Score [id number] Assessment Assessment/Impression PATIENT IS A 69 YO REFERRED BY [facility] TO EVAL AND TREAT S/P L rTSA, BICEPS TENODESIS . PATIENT DEMONSTRATES SIGNS AND SYMPTOMS CONSISTENT WITH S/P L rTSA, BICEPS TENODESIS 12/09/24 CONTRIBUTING TO THEIR FUNCTIONAL IMPAIRMENTS OF LIMITED USE OF LUE, ADL'S, IADL'S, NON-WB. PATIENT REPORTS GREAT SYMPTOM MGMT UTILIZING BY REST, ICE, GENTLY MVMT. PATIENT HAS NOTABLE OBJECTIVE FINDING INCLUDING PROM 90/90/0/24 @45 DEGREES SCAPTION, MODERATE HYPOMOBILITY OF THE GHJ, ACJ, AND SCJ, MODERATE EDEMA AND BRUISING WHICH ALL ARE CONTRIBUTING TO THE CLINICAL IMPRESSION. PATIENT IS A GOOD CANDIDATE FOR SKILLED PHYSICAL THERAPY TO ADDRESS AFOREMENTIONED DEFICITS ABOVE IN ORDER TO RETURN TO ASYMPTOMATIC STATUS AND RETURN TO UNRESTRICTED MVMTS. INTERVENTION IS NECESSARY BY WAY OF THERAPEUTIC EXERCISE, MANUAL THERAPY, MODALITIES FOR SYMPTOM MGMT, STABILIZATION/ PROPRIOCEPTION, NEUROMUSCULAR RE-EDUCATION, PATIENT EDUCATION PLEASE REFER TO APPROPRIATE SECTION WITHIN THIS EVALUATION FOR COMPLETE LIST OF GOALS AND PLAN OF CARE . DISCHARGE PLAN AND CRITERIA IS FOR PATIENT TO ACHIEVE THE GOALS LISTED BELOW OR UNTIL MAX POTENTIAL MET. PATIENT VERBALIZED UNDERSTANDING AND AGREEABLE TO POC, FREQ, AND GOALS ESTABLISHED. Primary Functional Limitations USE OF LUE, ADL'S, REACHING, LIFTING, CARRYING Plan of Care Rehabilitation Potential Good Physical Therapy Goals STG IN 4-6 WEEKS: 1. PATIENT WILL DEMONSTRATE GOOD MGMT OF HIS PAIN AND EDEMA WITH REPORTED PAIN </3/10 DURING HIS HOME PROGRAM AND WITH THE PROGRESSION OF HIS PHYSICAL THERAPY. 2. PATIENT WILL RETURN TO INDEPENDENCE WITH ADL'S, RETURN TO DRIVING, AND MAINTAIN HIS PRECAUTIONS/ RESTRICTIONS 3. PATIENT WILL DEMONSTRATE PROM TO WFL TO PREPARE FOR RETURN TO FUNCTIONAL USE OF LEFT UE; LTG WITHIN 8-12 WEEKS: 1. PATIENT WILL DEMONSTRATE AROM OF LEFT SHOULDER TO WFL TO RETURN TO FULL FUNCTIONAL FOR ADL'S, IADL'S AND PEER CENTERED ACTIVITIES. 2. PATIENT WILL DEMONSTRATE FUNCTIONAL STRENGTH TO RETURN TO REACHING OVERHEAD, ANTERIORLY AND OUT TO SIDE NEEDED DURING PATIENT CENTERED ACTIVITIES. 3. PATIENT WILL DEMONSTRATE INDEPENDENCE WITH HIS INDIVIDUALIZED AND COMPREHENSIVE HEP TO PROGRESS TWD THE ABVE MENTIONED GOALS, CONTINUED MGMT OF SYMPTOMS, AND ONGOING IMPROVEMENT WITH ROM, STRENGTH AND FUNCTION FOR A FULL RETURN TO ALL ACTIVITIES Coordination/Communication With Referral Source Treatment Plan/Direct Interventions Ice/Cold/Vasopneumatic,Joint Mobilization,Manual Therapy, Neuromuscular Re-ed,Orthotics/ Braces,Self-Care/Home Management,Therapeutic Activities,Therapeutic Exercises Frequency/Duration 1-2X/WK Patient Will Be Discharged From Therapy Completion of LTG(s), Independently Progressing Evaluation Billing Untimed Code Treatment Minutes 15 PT Eval No Charge No Complexity Low Certification Information Initial Certification Date 12/26/24 Ending Certification Date 03/25/25 Provider Signature Required Yes Provider Signature Shows Agreement With POC & Medical Necessity Physician NPI Number Write NPI# Here Physician Comment/Change : Physician Signature & Date Requested Please Sign/Date Here
== END 2025-05-11 15:41 | disposition home or self-care (01) ==
PROVIDERS: PCP Family Medicine; Visit Provider Orthopaedic Surgery
DX: Z48.89 Encounter for other specified surgical aftercare (principal); Z96.612 Presence of left artificial shoulder joint; M25.512 Pain in left shoulder; Z51.89 Encounter for other specified aftercare
CPT/HCPCS: 97110; 97140; 97161

== ENCOUNTER 2025-03-05 05:57 | Day surgery (SDC) | payer MEDICARE, BC, SELFPAY ==
[2025-03-05 06:06] VITALS: BP 137/87; PULSE 78; RESP 16; TEMP 36.9; O2SAT 95; BMI 36.4
[2025-03-05] MEDS: LACTATED RINGERS 1000 ML 1,000 ML 100 ML IV (06:30)
[2025-03-05] MEDS: SODIUM CHLORIDE 0.9 % (FLUSH) 10 ML SYRINGE IVF (06:30)
[2025-03-05] MEDS: BUPIVACAINE 0.5% 30 ML 10 ML INJECTION (07:20)
[2025-03-05] MEDS: lidocaine HCL 2 % MULTIDOSE 20 ML VIAL 10 ML INJECTION (07:22)
[2025-03-05 08:12] VITALS: BP 115/86; PULSE 78; RESP 14; TEMP 36.3; O2SAT 97
--- NOTE | 2025-03-05 08:15 | P.ANES_ITS ---
Anesthesia Charges Start Date/Time Anesthesia Start Date: 03/05/25 Anesthesia Start Time: 07:12 Stop Date/Time Anesthesia Stop Date: 03/05/25 Anesthesia Stop Time: 08:16 Coding CPT Codes CPT Codes: ANESTH ELBOW AREA SURGERY - 71142 ([id number]) P3 - PATIENT W/SEVERE SYS DISEASE, QK - TRUMPET TEACHER 2-4 CNCRNT ANES PROC, QX - ROLLWAY MAN SVC W/ MD MED DIRECTION
--- NOTE | 2025-03-05 08:15 | W.ANESCHARGE ---
Anesthesia Charges Start Date/Time Anesthesia Start Date: 03/05/25 Anesthesia Start Time: 07:12 Stop Date/Time Anesthesia Stop Date: 03/05/25 Anesthesia Stop Time: 08:16 Coding CPT Codes CPT Codes: ANESTH ELBOW AREA SURGERY - 96519 ([id number]) P3 - PATIENT W/SEVERE SYS DISEASE, QK - COMMERCIAL LITIGATION ATTORNEY 2-4 CNCRNT ANES PROC, QX - WATER SUPPLY TECHNICIAN SVC W/ MD MED DIRECTION
[2025-03-05 08:30] VITALS: BP 139/90; PULSE 70; RESP 16; O2SAT 94
[2025-03-05 08:45] VITALS: BP 148/80; PULSE 68; RESP 16; O2SAT 95
[2025-03-05] MEDS: ACETAMINOPHEN 500 MG TABLET 1000 MG PO (08:45)
--- NOTE | 2025-03-05 08:47 | P.ANES_ITS ---
Anesthesia Charges Start Date/Time Anesthesia Start Date: 03/05/25 Anesthesia Start Time: 07:12 Stop Date/Time Anesthesia Stop Date: 03/05/25 Anesthesia Stop Time: 08:16 Coding CPT Codes CPT Codes: ANESTH ELBOW AREA SURGERY - 01453 ([id number]) QK - DOUGH PUNCHER 2-4 CNCRNT ANES PROC, QX - TRAY SERVER SVC W/ MD MED DIRECTION, P3 - PATIENT W/SEVERE SYS DISEASE
--- NOTE | 2025-03-05 08:47 | W.ANESCHARGE ---
Anesthesia Charges Start Date/Time Anesthesia Start Date: 03/05/25 Anesthesia Start Time: 07:12 Stop Date/Time Anesthesia Stop Date: 03/05/25 Anesthesia Stop Time: 08:16 Coding CPT Codes CPT Codes: ANESTH ELBOW AREA SURGERY - 05115 ([id number]) QK - PRODUCTION UTILITY WORKER 2-4 CNCRNT ANES PROC, QX - ALTERATION INSPECTOR SVC W/ MD MED DIRECTION, P3 - PATIENT W/SEVERE SYS DISEASE
--- NOTE | 2025-03-09 08:25 | P.ORPRC_ITS ---
Procedure Note Date of procedure: 03/05/25 Procedure: Preop diagnosis: Left upper extremity cubital tunnel syndrome Postop diagnosis: Left upper extremity cubital tunnel syndrome Procedure: Left upper extremity cubital tunnel release Anesthesia: Local plus monitored anesthesia care Surgeon: Chad Canseco MD computer assistant: Dulce Maria Rankin PA-C EBL: 0 mL Complications: None Specimens: None Drains: None Preoperative antibiotics: Ancef 2 g Indications: The patient has a history of left upper extremity cubital tunnel syndrome symptoms. EMG/nerve conduction study confirms the diagnosis. Despite appropriate nonoperative management they continue to have symptoms. Operative intervention was recommended. The risks, benefits alternatives and expected outcomes were discussed in detail. These included but were not limited to: Infection, bleeding, injury to blood vessel or nerve, venous thromboembolism. All questions were answered to their satisfaction. The patient was placed supine on the operating room table. IV sedation was administered. The upper extremity was prepped and draped in usual sterile fashion. Soft tissues were infiltrated with 0.5% Marcaine without epinephrine, 1% lidocaine without epinephrine. The limb was exsanguinated with the Last bandage, the pneumatic tourniquet was inflated to 250 mm of mercury. A longitudinal incision was made centered over the ulnar nerve at the cubital tunnel. Subcutaneous dissection was taken with the scalpe, Metzenbaum and tenotomy scissors to the ulnar nerve. Dissection was carried distally to the fascia over the flexor carpi ulnaris which was divided longitudinally. We visualized the motor branch to the FCU. Dissection was carried proximally into the triceps muscle belly. This results in a wide decompression of the ulnar nerve. Flexion and extension of the elbow shows the nerve is stable. The wound was irrigated with normal saline. It was closed with a 2-0 Vicryl and a 3-0 Monocryl in a subcuticular fashion. Glue was used to seal the skin. A soft dressing was applied. The tourniquet was released. The patient tolerated the procedure well, there were no apparent complications. They were sent to same day surgery in satisfactory condition. Plan: Use of the upper extremity as tolerates. Discontinue the intraoperative dressing on postoperative day 3 and may get the wound wet as tolerates. Follow up in the office in 2 weeks for a wound check.
== END 2025-03-05 09:07 | disposition home or self-care (01) ==
LOC: OR 06:00
PROVIDERS: PCP Family Medicine; Visit Provider Orthopaedic Surgery
PROC: (CPT 64721; principal; 2025-03-05 07:15)
DX: G56.22 Lesion of ulnar nerve, left upper limb (principal)
CPT/HCPCS: 64718; 01710; A9270; J0665; J0690; J1100; J2250; J2405; J2704; J3010; J7120

== ENCOUNTER 2025-07-06 13:52 | Inpatient (IN) | payer MEDICARE, BC, SELFPAY ==
[2025-07-06] VITALS (22 sets, daily range): BP systolic 120–154; BP diastolic 74–103; PULSE 63–103; RESP 14–20; TEMP 36.4–36.7; O2SAT 90–97; BMI 34.4
[2025-07-06] MEDS: LACTATED RINGERS 1000 ML 1,000 ML 100 ML IV ×2 (07:05→09:24)
[2025-07-06] MEDS: ACETAMINOPHEN 500 MG TABLET 1000 MG PO ×3 (07:13→20:38)
[2025-07-06] MEDS: OXYCODONE (CR) 10 MG TAB.ER.12H PO (07:13)
--- NOTE | 2025-07-06 07:22 | W.PM.H&PU ---
History & Physical Update History & Physical Update H&P Reviewed and patient assessed: No changes noted
[2025-07-06] MEDS: SODIUM CHLORIDE 0.9 % (FLUSH) 10 ML SYRINGE IVF (07:42)
[2025-07-06] MEDS: MIDAZOLAM HCL 1 MG/ML inj IVP (08:30)
--- NOTE | 2025-07-06 08:42 | SUR.PREOP ---
TIME?OUT:?0830 PT/zunilda beyer RN/sharlene garay CRNA/amry cabral MDA?VERIFICATION?OF?SURGICAL?SITE,?PROCEDURE,?AND?CONSENT OBTAINED?PRIOR?TO?INVASIVE?PROCEDURE.
[2025-07-06] MEDS: TRANEXAMIC ACID 100 MG/ML INJ 1000 MG IV (09:14)
[2025-07-06] MEDS: VANCOMYCIN 100 MG/ML INJ 1000 MG TOPICAL (10:45)
[2025-07-06] MEDS: TOBRAMYCIN SULFATE 1.2 GM TOPICAL (10:45)
--- NOTE | 2025-07-06 11:36 | CRLHL7_ITS ---
For Patients: As a result of the Cures Act, medical imaging exams and procedure reports are released immediately into your electronic medical record. You may view this report before your referring provider. If you have questions, please contact your health care provider. INDICATION: Postop left shoulder TECHNIQUE: 2 portable images of left shoulder COMPARISON: 06/10/2025 FINDINGS: Immediate postop change of TSA removal and replacement with temporary prosthesis. Temporary prosthesis in good alignment. IMPRESSION: Immediate postop change of TSA removal and replacement with temporary prosthesis. No obvious complication. Dictated by Raul Ballard MD @ 07/07/2025 5:29:27 AM (Electronically Signed)
--- NOTE | 2025-07-06 11:41 | P.ORPRC_ITS ---
Procedure Note Date of procedure: 07/06/25 Procedure: PREOPERATIVE DIAGNOSIS: 1. 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 Left reverse shoulder arthroplasty explantation of all implants 2. Left shoulder extensive glenohumeral debridement including excisional debridement of some bone including the glenoid and the humerus. 3. Left shoulder implantation of antibiotic cement spacer (humeral sided only) SURGEON: Lowell Vines MD. PEDIATRIC RADIOLOGIST: Alex SIMON - Of note, a skilled assistant teaching professor was critical for this case to aid in patient positioning, tissue retraction, limb manipulation/positioning, retraction for glenoid exposure, which was challenging, awareness and protection of critical structures, and closure. ANESTHESIA: General plus supraclavicular block Implants: Antibiotic cement hemiarthroplasty spacer formed by hand SPECIMEN: 5 different cultures were obtained. These were as follows: A) tissue on the backside of the glenoid base plate B) tissue deep to the base plate C) inferior capsular tissue D) swab within the humeral canal E) tissue from the humeral canal adjacent to the humeral component Tornier Ascend flex Reverse Shoulder System implants were removed. Antibiotic cement was mixed on the back table and fashioned to be a hemiarthroplasty. After this had cured, it was inserted into the humeral canal to allow some tension to be restored and antibiotic elution. COMPLICATIONS: None evident INDICATIONS: The patient is a pleasant 69-year-old male who underwent the index left reverse shoulder arthroplasty procedure 12/09/2024 (by Dr. Chad Canseco). He initially did fine postoperatively. However, follow-up radiographs on 06/10/2025 showed that the stem had subsided into the humerus and the Flores taper of the humeral component had disengaged which popped off the humeral tray. It was recommended that a revision arthroplasty be considered. Unfortunately, Dr. Canseco himself has been out on medical leave and thus Trip presented to me ready for a revision left shoulder reverse arthroplasty surgery. FINDINGS: Typical scar tissue made the identification of the deltopectoral interval slightly more difficult. We were able to identify the cephalic vein further distally and tracked it somewhat proximally. There may have been some cauterization of the vessel during the index procedure as was not as clearly identified in the midportion of the wound. Upon entering the joint capsule, there was an abundant egress of synovial-type fluid. Larose colored, nonmalodorous, relatively thin/non viscous fluid. No paramjit purulence encountered. The humeral tray was indeed found to be disengage from the humeral stem component. After removing the humeral tray, we had better access to the glenosphere/glenoid component. The glenosphere was found to be loose/disengage from the base plate. This was removed readily. The base plate was also found to be grossly loose from the glenoid. Despite the central 9.5 mm screw and 2 peripheral locking screws, the entire construct quite simply could rotate in the glenoid in a 15-30 degree arc but also simply pulled out from the glenoid. DESCRIPTION OF PROCEDURE: Following a thorough discussion of risks, benefits, and alternatives, consent was obtained and the left shoulder was marked. The patient was brought to the operating room and placed supine on the operating table. Induction of anesthesia was undertaken. 2 g IV Ancef and 1 g tranexamic acid was administered within 1 hr of incision preoperatively. Appropriate time- out was performed identifying proper patient, site, and procedure. The operative extremity was prepped and draped in the appropriate sterile fashion using ChloraPrep after the patient was positioned in the [facility] beach chair position with head in neutral alignment and all bony prominences well padded. The previous longitudinal deltopectoral incision was sharply incised with a scalpel. Blunt dissection through the suspected deltopectoral interval helped us identify the cephalic vein further distally. We tracked this more proximally. Around the midportion of the wound, it was not as clearly identified which may have been related to previous cauterization or ligation. However, we were able to identify the deltopectoral interval. The deltoid was significant and he has to the deeper tissues. We mobilized the deltoid. The conjoined tendon was also identified and mobilized on both the superficial and deep surfaces. The subscapularis/capsule was identified and some suture tape sutures were identified presumably to reapproximate thus subscapularis to the humerus. This was divided with a cuff of tissue for tenotomy allowing us access to the joint itself. The rotator interval was reopened with combination of Bovie cautery and Metzenbaum scissors. The humeral tray was encountered, disengage from the humeral stem component, and the tray was removed. This improved visualization of the glenoid. The humerus was mobilized better by releasing some of the capsule along the inferior portion of the humerus. Caution was taken around the more inferior and deeper surface for axillary nerve presents. We did not encounter any significant twitches while using a Bovie cautery. After mobilizing humerus better, we accessed the glenoid. The glenosphere was found to be loose/unstable relative to the base plate. The screw was loosened in the central part and the glenosphere readily disengage/came off. In fact, is not really engaged. Base plate also was found to be grossly loose being able to both rotated as well as piston in an out. We were able to remove the entire base plate with the central 9.5 mm screw and the 2 peripheral locking screws all in 1 construct. It simply pulled out. We were able to take cultures from the backside of the base plate, the glenoid tissue, as well as inferior capsular tissue at this juncture. These were 3 of our 5 cultures. We then curetted the glenoid holes and thoroughly irrigated with normal saline. Attention was turned back to the humerus. The humeral stem was found to be well fixed, but likely because it had migrated further distal within the humeral diaphysis. We were able to apply broach handle and removed this. 2 more cultures were obtained including that swab of the humeral canal and tissue from adjacent to the humerus. A 3 minute Betadine soak was then performed. Thorough irrigation normal saline was completed. Cement was mixed on the back table with antibiotic mixture including 1 g powder vancomycin and 1.2 g powdered tobramycin. After allowing this to mix and began to cure, the cement was fashioned like a hemiarthroplasty. It was placed into the humeral canal after the cement had hardened so that it did not bind strongly to the humerus. It rested within the humeral canal and allowed reapproximation but some tension within the shoulder region. Closure was performed with # 1 PDS of the subscapularis tenotomy. Also reapproximation of the deltopectoral interval minimally. Thereafter, dressings were applied and patient was woken from anesthesia and transferred to recovery room stable condition. A skilled assistant teaching professor was critical for this case to aid in patient positioning, tissue retraction, limb manipulation/positioning, retraction for glenoid exposure, which was challenging, awareness and protection of critical structures, and closure. PLAN: 1. Sling at all times for the operative upper extremity. 2. AROM of elbow, forearm, wrist, and digits as tolerated. 3. OT consults for education and assistance. 4. family services coordinator consult for discharge planning. 5. Empiric iv antibiotics - anticipate need for PICC line placement for presumed deep infection 6. Maintain cultures x 4 weeks for presumed C. Acnes septic arthritis. 7. Early ambulation, and SCDs for DVT prophylaxis. 8. Admit to the hospital for the above 9. Analgesics p.r.n.
--- NOTE | 2025-07-06 11:52 | W.PM.NB ---
Nerve Block Nerve Block Time Seen by Provider: 08:30 Date Seen: 07/06/25 Type of block requested by surgeon for post-operative analgesia: supraclavicular Side: left Time out performed: Yes Verification of patient name: Yes Verification of date of : Yes Site marking: site marked Name of person performing procedure: Ike Continuous monitoring Was continuous monitoring of O2 sat, B/P, alarm security or surveillance monitor, recorded every 15 minutes?: Yes Procedure Checklist: sterile prep, needles and gloves Ultrasound guided. Images saved: Yes Medications given in 5ml increments after negative aspiration: Ropivicaine %: 0.5 mL: 20 Needle gauge: 22 Precedex (mcg): 25 Patient tolerated procedure well: Yes Block Charges Block Charge (with Pro Fee): Brachial Plexus Use of Ultrasound Machine for Block: Yes- US Guidance/pain block
--- NOTE | 2025-07-06 11:53 | P.ANES_ITS ---
Anesthesia Charges Start Date/Time Anesthesia Start Date: 07/06/25 Anesthesia Start Time: 08:40 Stop Date/Time Anesthesia Stop Date: 07/06/25 Anesthesia Stop Time: 11:57 Coding CPT Codes CPT Codes: ANESTH SHOULDER REPLACEMENT - 43611 ([id number]) P3 - PATIENT W/SEVERE SYS DISEASE, QK - SLUDGE CONTROL ATTENDANT 2-4 CNCRNT ANES PROC, QX - UNDERWATER PHOTOGRAPHER SVC W/ MD MED DIRECTION
--- NOTE | 2025-07-06 11:53 | W.ANESCHARGE ---
Anesthesia Charges Start Date/Time Anesthesia Start Date: 07/06/25 Anesthesia Start Time: 08:40 Stop Date/Time Anesthesia Stop Date: 07/06/25 Anesthesia Stop Time: 11:57 Coding CPT Codes CPT Codes: ANESTH SHOULDER REPLACEMENT - 68652 ([id number]) P3 - PATIENT W/SEVERE SYS DISEASE, QK - SPOOLER RUBBER STRAND 2-4 CNCRNT ANES PROC, QX - SPEECH LANGUAGE SPECIALIST SVC W/ MD MED DIRECTION
--- NOTE | 2025-07-06 12:03 | P.ANES_ITS ---
Anesthesia Charges Start Date/Time Anesthesia Start Date: 07/06/25 Anesthesia Start Time: 08:40 Stop Date/Time Anesthesia Stop Date: 07/06/25 Anesthesia Stop Time: 11:57 Coding CPT Codes CPT Codes: ANESTH SHOULDER REPLACEMENT - 70354 ([id number]) P3 - PATIENT W/SEVERE SYS DISEASE, QX - PATTERN SCRATCHER LEONARDC W/ MED DIRECTION, QK - CATERPILLAR OPERATOR 2-4 CNCRNT ANES PROC
--- NOTE | 2025-07-06 12:03 | W.ANESCHARGE ---
Anesthesia Charges Start Date/Time Anesthesia Start Date: 07/06/25 Anesthesia Start Time: 08:40 Stop Date/Time Anesthesia Stop Date: 07/06/25 Anesthesia Stop Time: 11:57 Coding CPT Codes CPT Codes: ANESTH SHOULDER REPLACEMENT - 13912 ([id number]) P3 - PATIENT W/SEVERE SYS DISEASE, QX - CARDIOVASCULAR SURGICAL TECH LEONARDC W/ MED DIRECTION, QK - CLIENT RELATIONSHIP EXECUTIVE 2-4 CNCRNT ANES PROC
[2025-07-06] MEDS: VANCOMYCIN 2 GM/400 ML 2 GM/400 ML PIGGYBACK IVPB (16:00)
--- NOTE | 2025-07-06 18:12 | PM.IMCN1 ---
Date of Consult Patient: Maddison Patient Consult date: 07/06/25 Requesting Physician: Orthopedics Primary Care Provider: Denzel Camargo MD Consult Narrative Narrative: Trip Pires is a 69 year old male admitted to the hospital with a failed left shoulder reverse shoulder arthroplasty. Initial procedure was done 12/09/2024. He has subsequently developed complications including disarticulation of the humeral component. He underwent surgery today with Dr. Vines where it was felt that the prosthetic joint was infected. It was removed and an antibiotic cement spacer was placed. Cultures obtained. Postoperatively he reports generally doing well. Not currently having significant pain. Preop evaluation did not show any significant concerns about operative complications or postoperative care. He has not had symptomatic infection with fever or chills. He does have a chronic painful swollen left shoulder. He has had no recent illness. Intraoperatively he was found to have apparent infection leading to the plan of antibiotic cement spacer and probable prolonged outpatient antibiotic therapy. 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 - Infection and inflammatory reaction due to other internal joint prosthesis, initial encounter (ICD-10) ?Z96.619 - Presence of unspecified artificial shoulder joint (ICD-10) Obesity ?E66.9 - Obesity, unspecified (ICD-10) Paresthesia of both feet ?R20.2 - Paresthesia of skin (ICD-10) PFO (patent foramen ovale) ?Q21.12 - Patent foramen ovale (ICD-10) PAULA (obstructive sleep apnea) ?G47.33 - Obstructive sleep apnea (adult) (pediatric) (ICD-10) Prostate cancer ?C61 - Malignant neoplasm of prostate (ICD-10) Unspecified hearing loss ?H91.90 - Unspecified hearing loss, unspecified ear (ICD-10) High blood pressure ?I10 - Essential (primary) hypertension (ICD-10) Ulnar neuropathy of left upper extremity ?G56.22 - Lesion of ulnar nerve, left upper limb (ICD-10) Dyskinesis of left scapula ?M25.312 - Other instability, left shoulder (ICD-10) Stroke (~2011) ?I63.9 - Cerebral infarction, unspecified (ICD-10) Surgical History History of reverse total replacement of left shoulder joint (07/06/25) ?Z96.612 - Presence of left artificial shoulder joint (ICD-10) S/P cubital tunnel release (03/09/25) ?Z98.890 - Other specified postprocedural states (ICD-10) Status post reverse arthroplasty of left shoulder (12/09/24) ?Z96.612 - Presence of left artificial shoulder joint (ICD-10) S/P ORIF (open reduction internal fixation) fracture (06/22/93) ?Z98.890 - Other specified postprocedural states (ICD-10) ?Z87.81 - Personal history of (healed) traumatic fracture (ICD-10) History of total right hip arthroplasty (08/22/05) ?Z96.641 - Presence of right artificial hip joint (ICD-10) History of arthroscopy of right knee (06/29/92) ?Z98.890 - Other specified postprocedural states (ICD-10) Social History (Updated 07/06/25 @ 18:21 by Raul Saleh MD) Narrative: -Rosemary, lives with his in [place]. Smoking Status: Former smoker Do you use any of these nicotine containing products: None Second hand tobacco smoke exposure: No How often do you have a drink containing alcohol: 4 or more times a week Alcohol type: beer, wine and hard liquor How many standard drinks containing alcohol do you have on a typical day: 3 or 4 How often do you have six or more drinks on one occasion: Never AUDIT-C Alcohol total score: 5 Non-prescribed substance use: denies use Caffeine: Yes service: Yes Meds Home Medications and Allergies Home Medications ?Medication ?Instructions ?Recorded ?Confirmed ?Type hydrochlorothiazide 25 mg tablet 25 mg PO DAILY 10/30/24 07/06/25 History losartan 50 mg tablet 50 mg PO DAILY 10/30/24 07/06/25 History potassium chloride 20 mEq 20 meq PO BID 10/30/24 07/06/25 History tablet,extended release(part/cryst) aspirin [Adult Low Dose Aspirin] 81 mg PO QDAY 06/10/25 07/06/25 History oxycodone 5 mg tablet 5 mg PO Q4-8H PRN pain #30 tabs 07/06/25 Rx sennosides 8.6 mg-docusate sodium 1 tab-cap PO BID PRN constipation 07/06/25 Rx 50 mg tablet (Senna-S) #15 tabs Allergies Allergy/AdvReac Type Severity Reaction Status Date / Time amlodipine AdvReac Mild Verified 07/06/25 07:30 Exam Narrative: Exam Narrative: He is alert and appears in no distress. He gives his own history. Oropharynx with small airway. Neck is supple without mass or adenopathy. Respirations are clear to auscultation. Cardiovascular: S1, S2, regular rate and rhythm. No murmur gallop or rub. Abdomen is protuberant. Nontender. Unable to identify masses. Left shoulder is inspected it has marked swelling of the soft tissue around the shoulder compared to the right. Bandage over the anterior shoulder from surgery without significant drainage or erythema. Left upper extremity has altered sensation but return of sensation to the fingers moves his fingers on his left hand fairly well. Good radial pulse. Right upper extremity and lower extremities with normal strength motion and sensation. No edema Const: Vital Signs, click to edit/add: Vital Signs - 24 hr 07/06/25 07:35 07/06/25 08:30 07/06/25 08:35 Temperature 97.8 F Pulse Rate 84 71 75 Pulse Rate [Pulse Oximeter] Respiratory Rate 20 20 20 Blood Pressure 151/92 H 154/95 H 148/92 H Blood Pressure [Ri ght Arm] Pulse Oximetry 95 97 95 Oxygen Delivery Me thod Room Air Nasal Cannula Nasal Cannula Oxygen Flow Rate 3 3 07/06/25 11:55 07/06/25 12:00 07/06/25 12:05 Temperature 97.7 F Pulse Rate 70 64 63 Pulse Rate [Pulse Oximeter] Respiratory Rate 18 16 16 Blood Pressure 138/86 120/84 133/86 Blood Pressure [Ri ght Arm] Pulse Oximetry 94 92 92 Oxygen Delivery Me thod Room Air Nasal Cannula Nasal Cannula Oxygen Flow Rate 3 3 07/06/25 12:10 07/06/25 12:15 07/06/25 12:20 Temperature 97.7 F Pulse Rate 65 63 64 Pulse Rate [Pulse Oximeter] Respiratory Rate 16 16 16 Blood Pressure 131/86 122/83 132/90 H Blood Pressure [Ri ght Arm] Pulse Oximetry 93 93 94 Oxygen Delivery Me thod Nasal Cannula Nasal Cannula Nasal Cannula Oxygen Flow Rate 3 3 3 07/06/25 12:30 07/06/25 12:45 07/06/25 13:00 Temperature 97.5 F L 97.7 F 97.5 F L Pulse Rate Pulse Rate [Pulse Oximeter] 64 63 66 Respiratory Rate 14 16 16 Blood Pressure Blood Pressure [Ri ght Arm] 131/87 127/91 H 128/84 Pulse Oximetry 90 93 94 Oxygen Delivery Me thod Nasal Cannula Nasal Cannula Nasal Cannula Oxygen Flow Rate 3 3 07/06/25 13:15 07/06/25 13:30 07/06/25 14:00 Temperature Pulse Rate Pulse Rate [Pulse Oximeter] 69 76 72 Respiratory Rate 16 16 16 Blood Pressure Blood Pressure [Ri ght Arm] 130/84 136/95 H 132/87 Pulse Oximetry 95 95 Oxygen Delivery Me thod Nasal Cannula Room Air Nasal Cannula Oxygen Flow Rate 3 3 1 07/06/25 14:30 07/06/25 15:00 07/06/25 15:32 Temperature Pulse Rate Pulse Rate [Pulse Oximeter] 70 76 Respiratory Rate 16 18 Blood Pressure Blood Pressure [Ri ght Arm] 126/86 130/99 H Pulse Oximetry 92 92 Oxygen Delivery Me thod Room Air Room Air Oxygen Flow Rate 07/06/25 16:37 07/06/25 17:37 Temperature 97.9 F 97.5 F L Pulse Rate Pulse Rate [Pulse Oximeter] 82 84 Respiratory Rate 18 16 Blood Pressure Blood Pressure [Ri ght Arm] 144/94 H 143/103 H Pulse Oximetry 93 92 Oxygen Delivery Me thod Room Air Room Air Oxygen Flow Rate Documenting provider has reviewed patient's vital signs: yes Assessment and Plan Assessment and plan (1) Failed total joint replacement: Problem comment: Originally placed 12/09/2024. Removed due to apparent infection 07/06/2025 Status: Acute (2) Prosthetic shoulder infection: Problem comment: Suspected 07/06/2025 with removal of prosthetic shoulder and implant of antibiotic cement spacer by Dr. Vines. Initiate treatment with ceftriaxone and vancomycin pending cultures and Infectious Disease consult Status: Acute (3) Status post reverse arthroplasty of left shoulder: Problem comment: Left upper extremity reverse shoulder arthroplasty, biceps tenodesis (12/09/2024, Dr. Canseco) Status: Acute (4) High blood pressure: Problem comment: Resume home meds Status: Acute (5) PAULA (obstructive sleep apnea): Problem comment: Home CPAP Status: Acute Plan 69-year-old male with probable left shoulder prosthetic joint infection. Admitted for removal of prosthesis and placement of antibiotic cement spacer. Await cultures, initiate empiric antibiotic with vancomycin and ceftriaxone. Infectious disease consult and hold cultures for 2 weeks for possibility of C acnes infection Total Time Spent Total Time Spent: Total time spent today is 60 minutes in reviewing outside records, coordination of care and discussing with patient, and other providers ongoing management of infected shoulder joints
--- NOTE | 2025-07-06 18:53 | PC.NURSE ---
Pt came to unit at 1230. Pleasant to care for. VSS. Denies pain. A&Ox4. Ambulating well with stand by assist. Pt is tolerating oral intake. He is unable to void at this time, bladder scanned at 217ml, pt denies discomfort. Surgical dressing is clean, dry and intact and remains in sling.
[2025-07-06] MEDS: cefTRIAXone 2 GM in 0.9 % SODIUM CHLORIDE Mini-bag 100 ML IVPB (19:35)
[2025-07-06] MEDS: POTASSIUM CHLORIDE 10 MEQ CAPSULE ER 20 MEQ PO (20:39)
[2025-07-06] MEDS: SENNOSIDES 1 TAB TABLET 2 TAB PO (20:39)
--- NOTE | 2025-07-07 | CRLHL7_ITS ---
For Patients: As a result of the Century Cures Act, medical imaging exams and procedure reports are released immediately into your electronic medical record. You may view this report before your referring provider. If you have questions, please contact your health care provider. INDICATION: : PICC line placement COMPARISON: Left shoulder radiograph on July 06, 2025 TECHNIQUE: One view(s) of the chest FINDINGS: Right upper extremity PICC with tip overlying the expected position of the cavoatrial junction, approximately 4.5 centimeters below the alix. The cardiomediastinal silhouette and pulmonary vasculature are unremarkable. There is no focal airspace consolidation, pleural effusion, or pneumothorax. No displaced fractures. Left shoulder temporary prosthesis. IMPRESSION: Right upper extremity PICC with tip overlying the expected position of the cavoatrial junction. Dictated by Eloy Nuno MD @ 07/07/2025 9:43:26 AM (Electronically Signed)
[2025-07-07 03:00] VITALS: BP 160/89; PULSE 83; RESP 20; O2SAT 96
[2025-07-07] MEDS: ACETAMINOPHEN 500 MG TABLET 1000 MG PO ×4 (03:21→21:04)
--- NOTE | 2025-07-07 05:30 | PC.NURSE ---
[id number] Pt slept well during night, using home cpap. no pain to Left shouldner/arm. Ice applied to site, scheduled tylenol only pain med administered. initially had trouble voiding, bladder scanned for 948cc, pt stated that this was normal and declined being straight cathed, urinary retention has resolved and pt voiding without difficulty. denies cheat pain, N/V. dressing C/D/I. up ad/lu, tolerating activity.
[2025-07-07] MEDS: VANCOMYCIN 2 GM/400 ML 2 GM/400 ML PIGGYBACK IVPB ×2 (05:57→17:41)
[2025-07-07 06:20] LABS: Hematocrit* 36.4 % (37.0-53.0); Hemoglobin* 12.4 gm/dL (13.5-17.5); Immature Granulocytes Pct Auto 0.2 %; Lymphocytes Absolute Auto 0.90 K/uL (0.90-2.90); Mean Corpuscular HGB Conc 34 gm/dL (32-36); Mean Corpuscular Hemoglobin 33 pg (26-34); Mean Corpuscular Volume 98 fL (80-100); RDW Coefficient of Variation % 11.7 % (11.5-15.5); Red Blood Count* 3.72 m/uL (4.30-5.90); White Blood Count* 13.45 K/uL (4.50-11.00)
[2025-07-07 06:22] LABS: Immature Granulocytes Abs Auto 0.00 K/uL (0.00-0.30); Slide Review Reflex No
[2025-07-07 06:34] LABS: Albumin* 3.8 g/dL (3.3-5.0); Chloride* 91 mmol/L (96-114); Potassium* 4.4 mmol/L (3.6-5.1); Sodium* 127 mmol/L (135-149)
[2025-07-07 06:37] LABS: Alanine Aminotransferase* 25 U/L (4-50); Alkaline Phosphatase* 68 U/L (40-150); Anion Gap 11 mEq/L (7-15); Aspartate Amino Transferase* 28 U/L (12-35); Bilirubin Total* 0.4 mg/dL (0.1-1.5); Blood Urea Nitrogen* 19 mg/dL (7-30); Carbon Dioxide* 25 mmol/L (20-32); Creatinine* 1.0 mg/dL (0.5-1.5); Est. Creatinine Clearance* 73.00; Estimated Glomerular Filt Rate 82 ml/min; Total Protein* 7.0 g/dL (6.0-8.3)
[2025-07-07 06:38] LABS: Calcium* 8.9 mg/dL (8.4-10.6); Glucose* 142 mg/dL (60-115)
[2025-07-07 07:00] VITALS: BP 152/91; PULSE 84; RESP 18; TEMP 36.6; O2SAT 95
[2025-07-07] MEDS: LOSARTAN POTASSIUM 50 MG TABLET PO (09:41)
[2025-07-07] MEDS: SENNOSIDES 1 TAB TABLET 2 TAB PO ×2 (09:41→21:04)
[2025-07-07] MEDS: ASPIRIN 81 MG TAB.CHEW PO (09:41)
[2025-07-07] MEDS: POTASSIUM CHLORIDE 10 MEQ CAPSULE ER 20 MEQ PO ×2 (09:42→21:04)
--- NOTE | 2025-07-07 10:44 | PM.ORPN ---
Subjective Subjective Date Seen: 07/07/25 Principal diagnosis: POD1 rt reverse TSA implant explantation, humeral cement spacer implant Interval history: Patient reports doing well. No acute events over night. Pain managed with scheduled and PRN medications, ice. DVT prophylaxis: SCDs, walking. Denies fevers, chills, aches, N/V, CP, SOB/SHRESTHA, or lightheadedness. Receiving PICC line today. Echo 07/08/25. Ortho Exam Narrative Exam Narrative: -Patient appears comfortable in recliner; no apparent acute distress -Alert and oriented times 3 -Operative shoulder swollen; soft, supple tissues; no obvious erythema. No ecchymosis. Warmth appropriate -Surgical dressing clean, dry, intact; no obvious drainage, no erythematous streaking peripheral to the bandage -Bilateral calves soft and supple; no significant swelling, edema, tenderness, erythema, discoloration, warmth, or palpable cords -2+ radial pulse, intact dermatomes and myotomes distally (5/5 strength) Const Vital Signs, click to edit/add: Vital Signs - 24 hr 07/06/25 11:55 07/06/25 12:00 07/06/25 12:05 Temperature 97.7 F Pulse Rate 70 64 63 Pulse Rate [Pulse Oximeter] Respiratory Rate 18 16 16 Blood Pressure 138/86 120/84 133/86 Blood Pressure [Right Arm] Pulse Oximetry 94 92 92 Oxygen Delivery Method Room Air Nasal Cannula Nasal Cannula Oxygen Flow Rate 3 3 07/06/25 12:10 07/06/25 12:15 07/06/25 12:20 Temperature 97.7 F Pulse Rate 65 63 64 Pulse Rate [Pulse Oximeter] Respiratory Rate 16 16 16 Blood Pressure 131/86 122/83 132/90 H Blood Pressure [Right Arm] Pulse Oximetry 93 93 94 Oxygen Delivery Method Nasal Cannula Nasal Cannula Nasal Cannula Oxygen Flow Rate 3 3 3 07/06/25 12:30 07/06/25 12:45 07/06/25 13:00 Temperature 97.5 F L 97.7 F 97.5 F L Pulse Rate Pulse Rate [Pulse Oximeter] 64 63 66 Respiratory Rate 14 16 16 Blood Pressure Blood Pressure [Right Arm] 131/87 127/91 H 128/84 Pulse Oximetry 90 93 94 Oxygen Delivery Method Nasal Cannula Nasal Cannula Nasal Cannula Oxygen Flow Rate 3 3 07/06/25 13:15 07/06/25 13:30 07/06/25 14:00 Temperature Pulse Rate Pulse Rate [Pulse Oximeter] 69 76 72 Respiratory Rate 16 16 16 Blood Pressure Blood Pressure [Right Arm] 130/84 136/95 H 132/87 Pulse Oximetry 95 95 Oxygen Delivery Method Nasal Cannula Room Air Nasal Cannula Oxygen Flow Rate 3 3 1 07/06/25 14:30 07/06/25 15:00 07/06/25 15:32 Temperature Pulse Rate Pulse Rate [Pulse Oximeter] 70 76 Respiratory Rate 16 18 Blood Pressure Blood Pressure [Right Arm] 126/86 130/99 H Pulse Oximetry 92 92 Oxygen Delivery Method Room Air Room Air Oxygen Flow Rate 07/06/25 16:37 07/06/25 17:37 07/06/25 19:37 Temperature 97.9 F 97.5 F L 97.8 F Pulse Rate Pulse Rate [Pulse Oximeter] 82 84 103 H Respiratory Rate 18 16 20 Blood Pressure Blood Pressure [Right Arm] 144/94 H 143/103 H 122/74 Pulse Oximetry 93 92 91 Oxygen Delivery Method Room Air Room Air Room Air Oxygen Flow Rate 07/06/25 23:00 07/06/25 23:00 07/07/25 03:00 Temperature 98.0 F Pulse Rate Pulse Rate [Pulse Oximeter] 86 83 Respiratory Rate 20 20 20 Blood Pressure Blood Pressure [Right Arm] 132/94 H 160/89 H Pulse Oximetry 92 92 96 Oxygen Delivery Method Room Air Room Air Room Air Oxygen Flow Rate 07/07/25 07:00 07/07/25 07:00 Temperature 97.8 F Pulse Rate Pulse Rate [Pulse Oximeter] 84 Respiratory Rate 18 Blood Pressure Blood Pressure [Right Arm] 152/91 H Pulse Oximetry 95 95 Oxygen Delivery Method Room Air Room Air Oxygen Flow Rate Assessment and Plan Assessment and plan (1) Failed total joint replacement: Problem details: Originally placed 12/09/2024. Removed due to apparent infection 07/06/2025 Status: Acute (2) Prosthetic shoulder infection: Problem details: Suspected 07/06/2025 with removal of prosthetic shoulder and implant of antibiotic cement spacer by Dr. Vines. Initiate treatment with ceftriaxone and vancomycin pending cultures and Infectious Disease consult pending - Dr. Romina Eisenberg will see patient tomorrow via video for formal consult. She recommended MRSA swab (ordered) and continuing ceftriaxone and vancomycin for now. Vancomycin can be discontinued if MRSA swab results are negative. Status: Acute (3) Status post reverse arthroplasty of left shoulder: Problem details: Left upper extremity reverse shoulder arthroplasty, biceps tenodesis (12/09/2024, Dr. Canseco) Status: Acute (4) High blood pressure: Problem details: Continue home meds Status: Chronic (5) PAULA (obstructive sleep apnea): Problem details: Home CPAP Status: Chronic Plan - continue vancomycin ceftriaxone via PICC line. - PT/OT consult for education and assistance. - Social work consult for discharge planning - Prescribed analgesics as needed - DVT prophylaxis: Walking, and SCDs - Infectious Disease consult could be placed for outpatient consult - Anticipation is for discharge to home with family today 07/07/2025 after PICC line is placed, and patient has received his IV antibiotics. Patient will need to be set up with with antibiotics. Patient will also need infectious disease consult as cultures return.
[2025-07-07 11:00] VITALS: BP 154/72; PULSE 86; RESP 20; TEMP 36.6; O2SAT 92
[2025-07-07 15:00] VITALS: BP 119/57; PULSE 84; RESP 20; TEMP 36.7; O2SAT 93
[2025-07-07 15:20] LABS: NT Pro B Type NatriureticPept* 168 pg/mL (See Note)
[2025-07-07] MEDS: FUROSEMIDE 10 MG/ML inj 40 MG IVP (15:21)
--- NOTE | 2025-07-07 15:21 | PM.IMPN1 ---
Assessment and Plan Assessment and plan (1) Failed total joint replacement: Problem comment: Originally placed 12/09/2024. Removed due to apparent infection 07/06/2025 Status: Acute (2) Prosthetic shoulder infection: Problem comment: Suspected 07/06/2025 with removal of prosthetic shoulder and implant of antibiotic cement spacer by Dr. Vines. Initiate treatment with ceftriaxone and vancomycin pending cultures and Infectious Disease consult pending - Dr. Romina Eisenberg will see patient tomorrow via video for formal consult. She recommended MRSA swab (ordered) and continuing ceftriaxone and vancomycin for now. Vancomycin can be discontinued if MRSA swab results as negative. Status: Acute (3) Status post reverse arthroplasty of left shoulder: Problem comment: Left upper extremity reverse shoulder arthroplasty, biceps tenodesis (12/09/2024, Dr. Canseco) Status: Acute (4) High blood pressure: Problem comment: Continue home meds Status: Chronic (5) PAULA (obstructive sleep apnea): Problem comment: Home CPAP Status: Chronic (6) Dyspnea on exertion: Problem comment: - Patient and his notes that this has been chronic, but seems a bit worse today. Possibly secondary to deconditioning. Give dose of IV furosemide, check trop and proBNP, ECHO (also since patient has infected hardware, cultures pending). Check CBC, BMP in am. Status: Acute (7) Hyponatremia: Problem comment: - Mild, asymptomatic. Suspect this is due to pain/surgery. 1500cc FR ordered. Recheck in the morning. Status: Acute Plan 69-year-old male with probable left shoulder prosthetic joint infection. Admitted for removal of prosthesis and placement of antibiotic cement spacer. Await cultures, initiate empiric antibiotic with vancomycin and ceftriaxone. Infectious disease consult and hold cultures for 2 weeks for possibility of C acnes infection Total Time Spent Total Time Spent: Today I spent 50 minutes seeing the patient on 2 separate occasions today, conversations with the patient and his , phone discussion with Dr. Romina Eisenberg from Infectious Disease, reviewing [facility] notes/diagnostics/labs, discussing the care plan with our care team that includes social work, PT/OT, pharmacy, RT, custodial and documenting my impressions and plan in the medical record. Subjective Time Seen by Provider: 11:00 Date Seen: 07/07/25 Interval history: Trip's , Rosemary was in the room this morning when I first saw him. When I went back later to update him about the plan of care (after I spoke with ID), Rosemary was part of the conversation via speakerphone on his mobile. Trip tells me he is deconditioned and that he gets SOB just walking in the barr or trying to get back into the hospital bed. He and his tell me that he is chronically dyspneic on exertion, but it does seem bit worse today. He attributes it to deconditioning. He denies CP. He notes his whole left hand is still numb from the block. Exam Narrative: Exam Narrative: General: No acute distress. Awake, alert, oriented x3. No pallor. No jaundice. Oropharynx: Clear. Mucous membranes moist. Cardiovascular: Regular rate and rhythm. No murmurs, gallops, or rubs. Respiratory: Clear to auscultation bilaterally. No wheezes or crackles. Abdomen: Bowel sounds present. Soft, nondistended, nontender. Extremities: Left upper extremity remains numb. Moves all fingers and able to shift production associate good strength. No lower extremity edema. When I saw patient the 2nd time to talk with him about staying the night to get the Infectious Disease consult next day, he had just gotten back into bed and was breathing very heavily for several minutes. Const: Vital Signs, click to edit/add: Vital Signs - 24 hr 07/06/25 15:32 07/06/25 16:37 07/06/25 17:37 Temperature 97.9 F 97.5 F L Pulse Rate [Pulse Oximeter] 76 82 84 Respiratory Rate 18 18 16 Blood Pressure [Le ft Calf] Blood Pressure [Ri ght Arm] 130/99 H 144/94 H 143/103 H Pulse Oximetry 93 92 Oxygen Delivery Me thod Room Air Room Air 07/06/25 19:37 07/06/25 23:00 07/06/25 23:00 Temperature 97.8 F 98.0 F Pulse Rate [Pulse Oximeter] 103 H 86 Respiratory Rate 20 20 20 Blood Pressure [Le ft Calf] Blood Pressure [Ri ght Arm] 122/74 132/94 H Pulse Oximetry 91 92 92 Oxygen Delivery Me thod Room Air Room Air Room Air 07/07/25 03:00 07/07/25 07:00 07/07/25 07:00 Temperature 97.8 F Pulse Rate [Pulse Oximeter] 83 84 Respiratory Rate 20 18 Blood Pressure [Le ft Calf] Blood Pressure [Ri ght Arm] 160/89 H 152/91 H Pulse Oximetry 96 95 95 Oxygen Delivery Me thod Room Air Room Air Room Air 07/07/25 11:00 07/07/25 15:00 Temperature 97.8 F 98.0 F Pulse Rate [Pulse Oximeter] 86 84 Respiratory Rate 20 20 Blood Pressure [Le ft Calf] 154/72 H 119/57 L Blood Pressure [Ri ght Arm] Pulse Oximetry 92 93 Oxygen Delivery Me thod Room Air Room Air Labs Labs: Laboratory Results - last 24 hr 07/07/25 07/07/25 06:05 14:40 WBC 13.45 H RBC 3.72 L Hgb 12.4 L Hct 36.4 L MCV 98 MCH 33 MCHC 34 RDW Coeff of Karen 11.7 Plt Count 280 Neut % (Auto) 84.3 H Lymph % (Auto) 6.7 L [place] % (Auto) 8.6 Eos % (Auto) 0.1 Baso % (Auto) 0.1 Neut # (Auto) 11.30 H Lymph # (Auto) 0.90 [place] # (Auto) 1.20 H Eos # (Auto) 0.00 Baso # (Auto) 0.00 Abs Immat Gran (auto) 0.00 Imm/Tot Granulo (auto) 0.2 Sodium 127 L Potassium 4.4 Chloride 91 L Carbon Dioxide 25 Anion Gap 11 BUN 19 Creatinine 1.0 Estimated Creat Clear 73.00 Estimated GFR 82 Glucose 142 H Calcium 8.9 Total Bilirubin 0.4 AST 28 ALT 25 Alkaline Phosphatase 68 Troponin I < 0.01 C-Reactive Protein 3.5 H NT-Pro-B Natriuret Pep 168 Total Protein 7.0 Albumin 3.8 Ordering Physician: Raul Saleh M.D. Date of Service: 07/07/25 Procedure(s): XR chest PICC placement conf Accession Number(s): [id number] cc: Denzel Camargo M.D.; Raul Saleh M.D.~ For Patients: As a result of the Century Cures Act, medical imaging exams and procedure reports are released immediately into your electronic medical record. You may view this report before your referring provider. If you have questions, please contact your health care provider. INDICATION: : PICC line placement COMPARISON: Left shoulder radiograph on July 06, 2025 TECHNIQUE: One view(s) of the chest FINDINGS: Right upper extremity PICC with tip overlying the expected position of the cavoatrial junction, approximately 4.5 centimeters below the alix. The cardiomediastinal silhouette and pulmonary vasculature are unremarkable. There is no focal airspace consolidation, pleural effusion, or pneumothorax. No displaced fractures. Left shoulder temporary prosthesis. IMPRESSION: Right upper extremity PICC with tip overlying the expected position of the cavoatrial junction. Dictated by Eloy Nuno MD @ 07/07/2025 9:43:26 AM (Electronically Signed)
--- NOTE | 2025-07-07 15:41 | PC.SOCIAL ---
Discharge planning: Called [facility] [phone] and spoke with Ariadne in intake. Ariadne stated that a plan needs to be in place and set by 2:00pm tomorrow in order to have home IV set up before . Their office is closed on but open again on Sunday (not open on the weekend). In order to set up home IV abx, [facility] needs all of the following information sent to them: 1. Face Sheet 2. H&P 3. Labs 4. Infectious Disease note 5. PICC Line placement report 6. Provider signed orders for medication and flush 7. Plan for pt to receive site cares and labs during home IV (weekly dressing changes and labs typically done out-pt). washhouse worker was able to fax (fax# [phone]) the first three items on the list today and will send additional information as it becomes available. [facility] intake states the first step is for them to check eligibility, which they can do with the information submitted today. washhouse worker to follow up with [facility] tomorrow. Assigned worker at [facility] is expected to be Naman in intake at [phone]. washhouse worker to follow up as needed.
--- NOTE | 2025-07-07 18:34 | PC.NURSE ---
End of Shift Note 255 Patient has been very pleasant and cooperative throughout shift. VSS. Afebrile. Patient A&Ox4. Moves well independently. Fluid restriction 1500. PICC line in place upper right arm/ confirmed placement by XRay. Uses call light appropriately. Surgical dressing has about 1/3 blood saturation. Ortho was contacted and shoulder was KETAN wrapped a per NEO Aggarwal instructions. Photo was sent to Orth via [employer]. Instructions are to change dressing with sterile procedure and chloroPrep if dressing fully saturated with blood. Sling should stay in place at all times and patient should be reminded to not move arm at all. Call light within reach.
[2025-07-07 19:00] VITALS: BP 162/80; PULSE 86; RESP 20; TEMP 36.6; O2SAT 94
[2025-07-07] MEDS: cefTRIAXone 2 GM in 0.9 % SODIUM CHLORIDE Mini-bag 100 ML IVPB (19:58)
[2025-07-07 23:00] VITALS: BP 160/71; PULSE 82; RESP 20; TEMP 36.7; O2SAT 92; O2SAT 93
[2025-07-08 03:00] VITALS: BP 158/88; PULSE 80; RESP 20; TEMP 36.8; O2SAT 92
[2025-07-08] MEDS: ACETAMINOPHEN 500 MG TABLET 1000 MG PO ×2 (03:55→10:33)
--- NOTE | 2025-07-08 04:15 | PC.NURSE ---
Shift Note: Pt friendly and cooperative, able to verbalize his needs. VSS, bp's mildly hypertensive. Rates pain 2/10, PRN Oxy given as well as scheduled Tylenol. Active in place throughout shift and changed frequently. Left radial pulse intact and cap refill to left fingers less than3 seconds. Surgical dressing was showing bloody drainage at beginning of shift and assessed by ticket writer and previous primary RN. Border was outlined and timed at shift change which did show small increase in previously outlined border. Dressing reassessed at 0430 and bloody drainage has continued to spread, tapering down the length of the entire dressing as well as beginning to scantly seep into adhesive border. New area outlined. KETAN wraps also used for compression throughout this shift and sling has remained in place except for removal to assess dressing. After hours ortho called for dressing update. Hospitalist okayed Powerade at HS outside 1500 cc FR.
[2025-07-08] MEDS: VANCOMYCIN 2 GM/400 ML 2 GM/400 ML PIGGYBACK IVPB (06:05)
--- NOTE | 2025-07-08 06:14 | PC.NURSE ---
Jasen LARSON updated with saturated dressing. Picture sent via [facility] at 0610
[2025-07-08 06:25] LABS: HCO3 VBG 26 mmol/L (21-28); PCO2 VBG 36 mmHG (40-50); PO2 VBG 63.8 mmHG (25-47); pH VBG 7.466 (7.32-7.43)
[2025-07-08 06:42] LABS: Chloride* 96 mmol/L (96-114); Potassium* 3.4 mmol/L (3.6-5.1); Sodium* 130 mmol/L (135-149)
[2025-07-08 06:46] LABS: Anion Gap 9 mEq/L (7-15); Blood Urea Nitrogen* 20 mg/dL (7-30); Calcium* 8.6 mg/dL (8.4-10.6); Carbon Dioxide* 25 mmol/L (20-32); Creatinine* 1.0 mg/dL (0.5-1.5); Est. Creatinine Clearance* 73.00; Estimated Glomerular Filt Rate 82 ml/min; Glucose* 113 mg/dL (60-115)
[2025-07-08 07:46] VITALS: BP 174/99; PULSE 83; RESP 20; TEMP 36.8; O2SAT 93
[2025-07-08 08:09] VITALS: RESP 18; O2SAT 94
[2025-07-08] MEDS: POTASSIUM CHLORIDE 10 MEQ CAPSULE ER 20 MEQ PO (09:41)
[2025-07-08] MEDS: ASPIRIN 81 MG TAB.CHEW PO (09:41)
[2025-07-08] MEDS: SENNOSIDES 1 TAB TABLET 2 TAB PO (09:41)
[2025-07-08] MEDS: LOSARTAN POTASSIUM 50 MG TABLET PO (09:42)
[2025-07-08 11:09] VITALS: BP 152/87; PULSE 77; RESP 18; TEMP 36.6; O2SAT 94
--- NOTE | 2025-07-08 13:43 | P.DS_ITS ---
DS: Providers Provider Date Seen: 07/08/25 Date of admission: 07/06/25 13:52 Primary care physician: Denzel Camargo MD Admitting Clinician: Lowell Vines MD Consults: 07/06/25 13:52 Consult to Occupational Therapy [CONS] Routine Comment: Reason(s) for OT Consult:: Evaluate and Treat Any Restrictions?:: See Comment Comment: ROM elbow, forearm, wrist, digits PRN Shoulder pendulums okay No active shoulder ROM Consult to Physical Therapy [CONS] Routine Comment: Reason(s) for PT Consult:: Evaluate and Treat Any Restrictions?:: No Restrictions Consult to Physician [CONS] Routine Comment: Consulting Provider: Hospitalists Has provider been notified: No Consult to Ar[employer]ist [employer]ber [CONS] Routine Comment: Reason for Consult:: Discharge Planning Needs 07/07/25 12:14 Consult to Infectious Diseases [CONS] Routine Comment: Consulting Provider: Maddison TeleInfectious Disease Attending Physician on discharge: Lowell Vines MD Date of Discharge: 07/08/25 DS: Diagnosis Discharge Diagnosis (1) Failed total joint replacement: Status: Acute Problem details: - Originally placed 12/09/2024, Removed due to apparent infection 07/06/2025 (2) Prosthetic shoulder infection: Status: Acute Problem details: - Suspected 07/06/2025, s/p removal of prosthetic shoulder and implant of antibiotic cement spacer by Dr. Vines - treated with Ceftriaxone and Vancomycin pending cultures - followed by ID (Dr. Romina Ramírez), formal consult 07/08/25 with recommendations below (please note, did not have adequate specimen for 16s rDNA PCR): Ceftriaxone 2 gm IV daily x 6 weeks Follow surgical cultures Please send 16s rDNA PCR is possible from a surgical specimen/fluid. Nasal MRSA PCR-pending Weekly labs- CBC, CMP, CRP. Please fax to Savita Ramírez MD at [phone] ([facility]) Will plan ID f/u in 3 weeks (telehealth) (3) High blood pressure: Status: Chronic Problem details: - age appropriate control on home meds (4) PAULA (obstructive sleep apnea): Status: Chronic Problem details: - Home CPAP (5) Dyspnea on exertion: Status: Acute Problem details: - acute on chronic 07/07/25; reassuring CXR, negative troponin and BNP, preliminary TTE report with EF 50% (formal Cardiology read pending) - did not require supplemental oxygen during stay, outpatient f/u (6) Hyponatremia: Status: Acute Problem details: - Mild, asymptomatic, likely iatrogenic from HCTZ, worsened by NPO status - follow as an outpatient DS: Summary Hospital Course Hospital Course: Trip Pires is a 69 year old male who was admitted to the hospital on 07/06/25 for a Left reverse shoulder arthroplasty explantation of all implants, extensive glenohumeral debridement including excisional debridement of some bone including the glenoid and the humerus, and implantation of antibiotic cement spacer (humeral sided only) with Dr. Vines of Orthopedic Surgery. His initial shoulder surgery was 12/09/24 with subsequent complications including disarticulation of the humeral component. Postoperatively, did well. Noted to have mild acute on chronic dyspnea with reassuring workup (mildly decreased EF on TTE 07/08, will f/u with PCP for this). Followed by ID given joint infection; no growth on cultures on 07/08/25; seen by Dr. Ramírez who recommends 6 weeks of outpatient IV Ceftriaxone (2g daily) with weekly CBC, CMP, CRP. PICC line has been placed and he is appropriate for d/c home on 07/08/25. Status at Discharge Functional status at discharge: independent ambulation Overall status at discharge: patient is progressing back to baseline Time Spent with Patient Time attestation: Total time spent providing and/or coordinating discharge services: Time spent: Greater than 30 minutes Specific discharge activities: ID consult, abx ordering, multidisciplinary team discussion Exam Narrative: Exam Narrative: GEN: Alert and oriented, sitting comfortably in bedside chair, nontoxic HEENT: EOMIs bilaterally, no scleral icterus CV: RRR, No concerning murmurs R: LCTA bilaterally Ext: Wearing sling left upper extremity, normal peripheral pulses and intact sensation Neuro: Nonfocal Psych: Appropriate Const: Vital Signs, click to edit/add: Vital Signs - 24 hr 07/07/25 15:00 07/07/25 15:00 07/07/25 19:00 Temperature 98.0 F 98 F Pulse Rate [Pulse Oximeter] 84 86 Respiratory Rate 20 20 Blood Pressure [Le ft Calf] 119/57 L 162/80 H Blood Pressure [Ri ght Calf] Pulse Oximetry 93 93 94 Oxygen Delivery Me thod Room Air Room Air Room Air 07/07/25 23:00 07/07/25 23:00 07/08/25 03:00 Temperature 98.1 F 98.3 F Pulse Rate [Pulse Oximeter] 82 80 Respiratory Rate 20 20 20 Blood Pressure [Le ft Calf] 160/71 H 158/88 H Blood Pressure [Ri ght Calf] Pulse Oximetry 93 92 92 Oxygen Delivery Me thod Room Air Room Air Room Air 07/08/25 07:46 07/08/25 08:09 07/08/25 11:09 Temperature 98.2 F 97.8 F Pulse Rate [Pulse Oximeter] 83 77 Respiratory Rate 20 18 18 Blood Pressure [Le ft Calf] 174/99 H Blood Pressure [Ri ght Calf] 152/87 H Pulse Oximetry 93 94 94 Oxygen Delivery Me thod Room Air Room Air Room Air DS: Data Data Completed and Pending Labs on day of discharge: Labs from last 24 hours 07/08/25 07/07/25 06:15 14:40 VBG pH 7.466 H VBG pCO2 36 L VBG pO2 63.8 H VBG HCO3 26 Sodium 130 L Potassium 3.4 L Chloride 96 Carbon Dioxide 25 Anion Gap 9 BUN 20 Creatinine 1.0 Estimated Creat Clear 73.00 Estimated GFR 82 Glucose 113 Calcium 8.6 Troponin I < 0.01 C-Reactive Protein 3.0 H NT-Pro-B Natriuret Pep 168 Preliminary micro results at discharge 07/06/25 10:49 Aerobic Culture - Preliminary Shoulder Left No growth. Anaerobic Culture - Preliminary No growth. 07/06/25 10:48 Aerobic Culture - Preliminary Shoulder Left No growth. Anaerobic Culture - Preliminary No growth. 07/06/25 10:47 Aerobic Culture - Preliminary Shoulder Left No growth. Anaerobic Culture - Preliminary No growth. 07/06/25 10:46 Aerobic Culture - Preliminary Shoulder Left No growth. Anaerobic Culture - Preliminary No growth. 07/06/25 10:45 Aerobic Culture - Preliminary Shoulder Left No growth. Anaerobic Culture - Preliminary No growth. 07/07/25 13:38 MRSA Screen - Preliminary Nares Discharge Plan Discharge Disposition: Home, Self-Care Date of Admission: 07/06/25 13:52 Attending Provider on Discharge: Farideh Salgado Consulting Providers: Geovanna Garcia; Farideh Salgado; Margarita Up; Naz Fink; Ritchie Shahid; Shayla Motley; Raul Saleh; Savita Ramírez; Jacquelyn Resendiz Primary Care Provider: Denzel Camargo Condition: Stable Anticipated Discharge Date/Time: 07/07/25 12:30 Discharge Medications: New sennosides-docusate sodium [Senna-S] 8.6-50 mg tablet 1 tab-cap PO BID PRN (Reason: constipation) Qty: 15 1RF Rx Instructions: Take while using narcotics. Hold for loose stools. oxycodone 5 mg tablet 5 mg PO Q4-8H PRN (Reason: pain) Qty: 30 0RF ceftriaxone 2 gram Recon Soln 2 g IVPB Q24H 42 Days Qty: 10 0RF Continued potassium chloride 20 mEq tablet,ER particles/crystals 20 meq PO BID hydrochlorothiazide 25 mg tablet 25 mg PO DAILY losartan 50 mg tablet 50 mg PO DAILY aspirin [Adult Low Dose Aspirin] 81 mg PO QDAY Discharge Orders: Discharge Order (Routine); Ordered 07/08/25 Ordered By: Farideh Salgado Patient Education: How to Use a Sling (DC), Peripheral Nerve Block (DC), General Anesthesia (DC), Shoulder Arthroplasty (DC) Additional Instructions: Weekly CBC, CMP, and CRP to be done and sent to Dr. Ramírez (these can be drawn at [facility], then Dr. Ramírez can see results in your EPIC chart) 6 weeks of IV Ceftriaxone daily through PICC line. Chat with Dr. Camargo about your TTE results and any subsquent medication ch jacob. Activity Detail: Wound: ? Maintain original dressing; we will remove this at first post-op visit in 1-2 weeks. Only remove dressing if integrity is in question/saturated from showering. ? No immersing wound in water; showering okay with bandage in place; light scrub with your hand and body soap, rinse, dab dry. After the bandage is removed in 1- 2 weeks, the same shower instructions apply. ? Sutures are under the skin, will dissolve over time; do not scrub the wound or apply ointments/lotions. ? Call our office with any redness that streaks, excessive drainage from the wound, or wound gapping. Ice/Elevate: ? Ice as needed for swelling and discomfort (cryocuff or ice pack), typically 20min on/20min off, repeating as able. Elevate hand/forearm above the heart via propping on pillows. Motion/Exercise: ? Walk as tolerated. ? No Weight bear operative extremity ? Range of motion of any joint (including fingers) out of sling/splint 10+ times per day as tolerated (Elbow, forearm, wrist, digits). Shoulder pendulums are encouraged (dangle like an elephant trunk). ? Sling to be worn most of time: May remove for showering, ROM as noted above, pendulums, and if sedentary in a safe / stable environment (e.g. watching TV, reading a book, etc.) - it is to be a reminder not to reach for things or rotate the shoulder. ? No lifting greater than coffee cup in weight, operative extremity ? PT/OT exercises as explained/prescribed. Pain Medications: ? Oral narcotic as prescribed. Wean as tolerated. Additional acetaminophen and ibuprofen as needed. Driving: ? Do not drive while taking narcotic pain medication. ? Do not drive while needing the sling. ? If driving, do not use operative extremity to control the steering wheel. Dental: ? No elective dental work for 3 months post-op. If there is an urgent/emergent dental need, contact our office for an antibiotic prescription. Smoking/Alcohol: ? Do not smoke; do no drink alcohol especially when taking postoperative oral narcotic medication. Seek Care from your Primary Care Provider if you experience the following issues in the postoperative phase and beyond: ? Bacterial infections such as: pneumonia, bacterial skin infection (cellulitis), UTI, high fever, chills unrelated to the operative body part - call your primary care physician urgently for treatment in hopes to protect your health and the metal implant(s). Referrals: ? PT, OT per patient preference ? evaluate and treat right reverse total shoulder arthroplasty protocol. Vaccines: ? No vaccines until 4-6 weeks postop Follow up: ? PA-C as previously scheduled ? Ortho surgeon follow-up in 6 weeks; repeat radiographs three views operative shoulder If there are any acute concerns regarding your surgery, please call our orthopedic clinic ([phone]) Discharge Diet: Regular Follow Up Appointments: Denzel Camargo MD [Primary Care Provider, [facility]] Referral Note: appt next week for hospital f/u and to start weekly labs (CBC, CMP, CRP) Jasen Monroe PA-C [Physician Program Director [employer], Orthopedics] - 07/21/25 2:00 am Referral Note: Appointment @ the [facility]: [facility] Inst[facility]
[2025-07-08] MEDS: cefTRIAXone 2 GM in 0.9 % SODIUM CHLORIDE Mini-bag 100 ML IVPB (13:53)
--- NOTE | 2025-07-08 15:20 | PC.SOCIAL ---
Addendum entered by TERESE Smith 07/08/25 15:31: During phone call between clinical social work aide and [facility], [facility] provided an estimate of co-pay responsibility for pt of $22.29/week for medication and $140/week for supplies, totalling $162.29/week. Pt and are aware and agree to this cost. Called [employer] and left message confirming pt and have agreed to this cost. Original Note: Discharge planning: Met with pt and regarding options for home IV abx or out-pt infusion once a day at discharge. Pt and are requesting clinical social work aide arrange for home IV abx through [facility]. Initial information had been sent to [facility] yesterday. Followed up by sending the remained of requested information, ID note and MD orders for medication and flush to [facility] (fax [phone]). Called and sopke with [facility] assigned ironing worker, [employer] [phone] who states they will reach out to pt and on Sunday07/10/25 for remote teaching and delivery of supplies for expected start of home IV abx on Sunday07/11/25. Until Home IV abx are started, pt will come to the [facility] for out/pt IV abx daily. Provided pt and with contact information for [facility] and they are aware and agree with the arrangements as completed.
--- NOTE | 2025-07-08 15:55 | PC.NURSE ---
shift note: AOX4. Pt shoulder outlined by RN to draining site. Serosanguineous drainage on island dressing. Gown changed and ABD pad placed under armpit to catch any additional drainage. ABD pad & gown remained clear & free of drainage. PA in to see pt and change dressing. KETAN wrap applied; sling in place & education provided on maintaining positioning & wraps. PICC in place w/ dressing intact. IV infusion outpatient education provided. Pt CHEMA chavis w/ nursing staff. Follow-up appt & med education provided. is bedside, supportive & present for cares & education. Pt W/C out to personal vehicle by RN to be driven home by .
== END 2025-07-08 15:15 | disposition home or self-care (01) | DRG 511 ==
LOC: OR 15:42 → MEDSURG 15:42
PROVIDERS: Family Medicine; Admitting Provider Orthopaedic Surgery Sports Medicine; PCP Family Medicine; Visit Provider Orthopaedic Surgery Sports Medicine
PROC: 0RRJ0JZ Replacement of Right Shoulder Joint with Synthetic Substitute, Open Approach (ICD-10-PCS; CPT 23472; principal; 2025-07-06 08:45)
DX: T84.028A Dislocation of other internal joint prosthesis, initial encounter (principal); E87.1 Hypo-osmolality and hyponatremia; T84.038A Mechanical loosening of other internal prosthetic joint, initial encounter; T84.59XA Infection and inflammatory reaction due to other internal joint prosthesis, initial encounter; G89.18 Other acute postprocedural pain; G47.33 Obstructive sleep apnea (adult) (pediatric); R06.00 Dyspnea, unspecified; I10 Essential (primary) hypertension; Z96.612 Presence of left artificial shoulder joint; Z96.641 Presence of right artificial hip joint; Z79.82 Long term (current) use of aspirin; Z86.73 Personal history of transient ischemic attack (TIA), and cerebral infarction without residual deficits
CPT/HCPCS: 01638; 36415; 36573; 51798; 64415; 73030; 76942; 80048; 80053; 82803; 83880; 84484; 85025; 86140; 87070; 87075; 87081; 87205; 93306; 97110; 97165; 97530; 97535; A9270; C1751; J0690; J0696; J1100; J1938; J2250; J2371; J2405; J2704; J2710; J2795; J3010; J3373; J3375; J7120; L3670